=== PATIENT | female | born 1965 | race Caucasian/White ===

== ENCOUNTER 2017-03-04 13:30 | Emergency (ER) | payer OTHER ==
[2017-03-04 13:50] VITALS: RESP 18
[2017-03-04] MEDS ORDERED: IPRATROPIUM-ALBUTEROL 3 ML NEB INHALATION STA (14:04)
[2017-03-04] MEDS ORDERED: predniSONE 20 MG TAB PO STA (14:04)
--- NOTE | 2017-03-04 14:10 | ED ---
General Adult HPI - General Chief complaint: Shortness of Breath Stated complaint: SOB/Cough Time Seen by Provider: 03/04/17 13:52 Source: patient, RN notes reviewed, old records reviewed Mode of arrival: ambulatory Limitations: no limitations - History of Present Illness Initial comments: 52-year-old female with history of COPD presenting for cough and shortness of breath. Patient states she's had worsening symptoms over the past 3 days. She states that she has cough productive of yellow sputum. She has had some chills but denies any fevers. She denies any chest pain. She does state that she's had some pain in her right back, which is worse with coughing. This is been present for the past week, but has been a chronic recurrent issue for her for several years. She does have an inhaler at home she has been using but it does not seem to be helping. She did finish a course of steroids about a month ago for similar symptoms. She's not had any steroids since then. No recent antibiotic use. - Related Data Home Medications Medication Instructions Recorded Confirmed Albuterol Inhaler [Ventolin Hfa 1 - 2 puff INHALATION RT-Q4H PRN 03/04/17 Inhaler] Ibuprofen [Motrin] 800 mg PO Q8HR PRN 03/04/17 03/04/17 Previous Rx's Medication Instructions Recorded Albuterol Inhaler [Ventolin Hfa 2 puff INHALATION Q6HR PRN #1 03/04/17 Inhaler] inhaler Azithromycin [Zithromax] 250 mg PO DAILY #6 tab 03/04/17 Diazepam [Valium] 5 mg PO BID PRN #8 tab 03/04/17 traMADol HCl [Ultram] 50 mg PO Q8HR PRN #15 tab 03/04/17 Allergies Allergy/AdvReac Type Severity Reaction Status Date / Time No Known Allergies Allergy Verified 03/04/17 14:10 Review of Systems ROS Statement: Those systems with pertinent positive or pertinent negative responses have been documented in the HPI. ROS Other: All systems not noted in ROS Statement are negative. Past Medical History Past Medical History: Asthma, COPD Additional Past Medical History / Comment(s): asthma History of Any Multi-Drug Resistant Organisms: None Reported Past Surgical History: Section Additional Past Surgical History / Comment(s): thyroid surgery, lump removed from right breast Past Psychological History: No Psychological Hx Reported Smoking Status: Current every day smoker Past Alcohol Use History: None Reported, Daily Past Drug Use History: None Reported General Exam - General Exam Comments Initial Comments: General: Awake and Alert. No acute distress. Does not appear acutely ill. Eyes: JUANITA, EOM intact. No nystagmus. No scleral icterus. HENT: Atraumatic, normocephalic. Mucous membranes moist. Trachea midline. Neck: The neck is supple, there is no tenderness or JVD. Cardiovascular: Regular rate and rhythm. No murmur, rub, or gallop is appreciated. Distal pulses intact. Respiratory: Lungs are clear to auscultation bilaterally. Positive wheezes. No rales, rhonchi. No respiratory distress. Gastrointestinal: Soft, Nontender. No rebound or guarding. Non-distended. No masses or organomegaly noted. No CVA tenderness. Musculoskeletal: There is point tenderness over the right posterior lower ribs. Otherwise no tenderness. Normal ROM. No gross deformity. No strength deficits. Neurological: A&Ox3. CN II-XII grossly intact, There are no obvious motor or sensory deficits. Coordination appears grossly intact. Speech is normal. Skin: Skin is warm and dry and no rashes or lesions are noted. Psychiatric: Cooperative, appropriate mood & affect, normal judgment. Limitations: no limitations Course Vital Signs 03/04/17 03/04/17 03/04/17 13:44 14:47 14:53 Temperature 98.3 F Pulse Rate 73 78 78 Respiratory 18 18 Rate Blood Pressure 151/62 130/60 O2 Sat by Pulse 96 97 Oximetry 03/04/17 03/04/17 15:04 15:41 Temperature 98.5 F Pulse Rate 83 78 Respiratory 18 Rate Blood Pressure 128/64 O2 Sat by Pulse 97 Oximetry Medical Decision Making - Medical Decision Making 52-year-old female presenting for cough and shortness of breath. Patient with history of COPD and active tobacco user. Patient also has some right posterior rib pain on exam. This is reproducible tenderness. There is low suspicion of PE or severe intrathoracic process at this time. Vitals are stable, no hypoxia. Patient was given a breathing treatment with improvement of her shortness breath. Chest x-ray was performed without acute process. Given her risk with tobacco abuse and COPD plan to cover in his throat. Started on steroids in the emergency room. Rx for this also provided. Patient provided with inhaler prescription as well. Also written for tramadol and Valium for her likely musculoskeletal rib pain. Discussed benefits of smoking cessation. Discussed close follow-up with PCP. Discussed concerning signs symptoms or immediate return to the ED. Patient is agreeable with plan a discharge home. - Radiology Data Radiology results: report reviewed, image reviewed Disposition Clinical Impression: COPD exacerbation, Rib pain on right side, Cough, Tobacco abuse Disposition: HOME SELF-CARE Condition: Stable Instructions: Costochondritis (ED), Bronchospasm (ED), Acute Cough (ED) Prescriptions: Albuterol Inhaler [Ventolin Hfa Inhaler] 2 puff INHALATION Q6HR PRN #1 inhaler PRN Reason: Shortness Of Breath Azithromycin [Zithromax] 250 mg PO DAILY #6 tab Diazepam [Valium] 5 mg PO BID PRN #8 tab PRN Reason: back spasm traMADol HCl [Ultram] 50 mg PO Q8HR PRN #15 tab PRN Reason: Pain Referrals: Jaime Ramos MD [Primary Care Provider] - 1-2 days Time of Disposition: 15:30
--- NOTE | 2017-03-04 14:24 | XR ---
EXAMINATION TYPE: XR chest 2V DATE OF EXAM: 03/04/2017 2:14 PM COMPARISON: None HISTORY: 52-year-old female with cough and congestion TECHNIQUE: PA and lateral views FINDINGS: The cardiomediastinal silhouette, aorta, and pulmonary vasculature are within normal limits. Some str nick atelectasis at the medial right base. Otherwise, lungs and pleural spaces are clear. Old healed surgical neck fracture at the proximal right humerus. IMPRESSION: No acute cardiopulmonary process.
[2017-03-04] MEDS ORDERED: IBUPROFEN 800 MG TAB PO STA (15:06)
[2017-03-04] MEDS ORDERED: traMADol 50 MG TAB PO STA (15:17)
[2017-03-04 15:42] VITALS: BP 128/64; PULSE 78; TEMP 98.5
== END 2017-03-04 15:42 | disposition home or self-care (01) ==
LOC: EC 13:30
DX: J44.1 Chronic obstructive pulmonary disease with (acute) exacerbation (principal); R07.81 Pleurodynia; F17.200 Nicotine dependence, unspecified, uncomplicated
CPT/HCPCS: 94640; 71020; 99285; J7512

== ENCOUNTER → 2017-12-04 | Outpatient (CLI) | payer OTHER ==
--- NOTE | 2017-12-06 08:12 | MM ---
Reason for exam: screening (asymptomatic). Last mammogram was performed 1 year and 11 months ago. History: Patient is postmenopausal. Family history of breast cancer in paternal cousin. Excisional biopsy of the right breast, 1981. Physical Findings: A clinical breast exam by your physician is recommended on an annual basis and results should be correlated with mammographic findings. MG 3D Screening Mammo W/Cad Bilateral CC and MLO view(s) were taken. Prior study comparison: December 26, 2015, bilateral MG 3d screening mammo w/cad. August 12, 2012, bilateral digital screening mammo w/CAD. The breast tissue is heterogeneously dense. This may lower the sensitivity of mammography. Ovoid nodularity asymmetry posterior inferior right MLO view appears more defined and incompletly disperses on 3D images. New grouped calcifications axillary tail left breast. ASSESSMENT: Incomplete: need additional imaging evaluation, BI-RAD 0 RECOMMENDATION: Special view mammogram of both breasts. If lesion persists on supplemental views, image directed ultrasound is recommended. [facility] will attempt to contact patient to return for supplemental views and ultrasound if indicated.
== END | disposition home or self-care (01) ==
LOC: RADMAMWWP 14:02
PROVIDERS: ATTEND Family Medicine
DX: Z12.31 Encounter for screening mammogram for malignant neoplasm of breast (principal)
CPT/HCPCS: 77063; 77067

== ENCOUNTER → 2017-12-12 | Outpatient (CLI) | payer OTHER ==
--- NOTE | 2017-12-13 09:39 | MM ---
Reason for exam: additional evaluation requested from abnormal screening. Last mammogram was performed less than 1 month ago. History: Patient is postmenopausal. Family history of breast cancer in paternal cousin. Excisional biopsy of the right breast, 1989. Physical Findings: Nurse did not find any significant physical abnormalities on exam. MG 3D Work Up W/Cad GARETT Bilateral LM view(s) were taken. Spot compression CC and spot compression MLO view(s) were taken of the right breast. CC with magnification and ML with magnification view(s) were taken of the left breast. Prior study comparison: December 04, 2017, bilateral MG 3d screening mammo w/cad. December 26, 2015, bilateral MG 3d screening mammo w/cad. Finding: There are typically benign coarse heterogeneous, segmental calcifications in the upper outer quadrant, posterior position of the left breast. There is no discrete abnormality in the right breast. These results were verbally communicated with the patient and result sheet given to the patient on 12/12/17. ASSESSMENT: Probably benign, BI-RAD 3 RECOMMENDATION: Follow-up diagnostic mammogram of the left breast in 6 months. (with mag views)
== END | disposition home or self-care (01) ==
LOC: RADMAMWWP 13:41
PROVIDERS: ATTEND Family Medicine
DX: R92.8 Other abnormal and inconclusive findings on diagnostic imaging of breast (principal)
CPT/HCPCS: 77066; G0279

== ENCOUNTER → 2017-12-19 | Outpatient (CLI) | payer OTHER ==
--- NOTE | 2017-12-19 16:59 | CT ---
EXAMINATION TYPE: CT abdomen pelvis w con DATE OF EXAM: 12/19/2017 COMPARISON: 12/14/2015 HISTORY: 52-year-old female with abdominal and Pelvic pain TECHNIQUE: Contiguous axial scanning of the abdomen and pelvis following administration of 100 ml Omn ipaque 300 IV contrast. Delayed images through the kidneys and coronal/sagittal reconstructions perf ormed. CT DLP: 427.9 mGycm Automated exposure control for dose reduction was used. FINDINGS: Heart is normal size with trace anterior pericardial fluid/thickening. There is a 9 mm subpleural nodule posterior left lung base new from prior, suspected nodular subpleur al atelectasis. No pleural effusion. A couple subcentimeter hypodensities in the superior liver, axial image 12 and 13 were present in 201 6 suggestive of cysts. Some focal fat is seen along the anterior falciform ligament. Portal vein is p atent. No biliary ductal dilatation. Gallbladder, adrenal glands, left kidney, and pancreas within normal limits. Subcentimeter hypodensit y lower pole right kidney too small fractured CT characterization was present previously suggesting a cyst. There is a heterogeneously enhancing round mass measuring 3.9 cm in the upper pole of the spleen prev iously measured 1.6 cm. No dilated small bowel, free fluid, or free air. Oral contrast has progressed to the rectum. There is sigmoid diverticulosis without pericolonic infla mmatory change. Scattered nonenlarged mesenteric lymph nodes in the upper abdomen. No mesenteric or retroperitoneal l ymphadenopathy. Bladder partially urine distended. Redemonstrated mass along the right lateral aspect of the uterus measuring 3.7 cm, unchanged from 11/19 suggestive of a focal fibroid. Small bilateral ovaries. Pelvic phlebolith. No abnormal fluid c ollection in the pelvis or pelvic lymphadenopathy seen. Bones: Facet arthropathy mid to lower lumbar spine. There is grade 1 anterolisthesis at L3-L4. IMPRESSION: 1. ENLARGING MASS IN THE UPPER POLE OF THE SPLEEN CURRENTLY MEASURING 3.9 CM VERSUS 1.6 CM ON 12/14/19 16. RELATIVELY INDOLENT GROWTH CHARACTERISTICS MAKES AN AGGRESSIVE LESION INCLUDING METASTATIC DISEAS E LESS LIKELY. HEMANGIOMA, HAMARTOMA, AND HAMARTOMA VARIANT ARE POSSIBLE BENIGN ETIOLOGIES WHICH MAY BE BETTER ASSESSED WITH DYNAMIC CONTRAST ENHANCED MRI. FOLLOW-UP IS RECOMMENDED A NEOPLASTIC ETIOL OGY IS NOT EXCLUDED AT THIS TIME. 2. A 9 MM SUBPLEURAL NODULE POSTERIOR LEFT BASE IS NEW BUT SUSPECTED TO REPRESENT AN AREA OF NODULAR SUBPLEURAL ATELECTASIS. THREE-MONTH FOLLOW-UP RECOMMENDED. 3. STABLE 3.7 CM MASS IN THE RIGHT LATERAL UTERUS MOST SUGGESTIVE OF A FOCAL FIBROID. 4. SIGMOID DIVERTICULOSIS.
== END | disposition home or self-care (01) ==
LOC: RADCTMAIN 14:14
PROVIDERS: ATTEND Family Medicine
DX: K57.30 Diverticulosis of large intestine without perforation or abscess without bleeding (principal); N85.8 Other specified noninflammatory disorders of uterus
CPT/HCPCS: 74177; Q9967

== ENCOUNTER → 2018-04-25 | Outpatient (CLI) | payer OTHER ==
--- NOTE | 2018-04-25 16:08 | CT ---
EXAMINATION TYPE: CT chest w con DATE OF EXAM: 04/25/2018 COMPARISON: CT abdomen 12/19/2017 HISTORY: Abnormal mammogram and lung nodule CT DLP: 591 mGycm, Automated exposure control for dose reduction was used. CONTRAST: Performed injected with 100 ml mL of Isovue 300. TECHNIQUE: Axial images were obtained at 5 mm thick sections. Reconstructed images are reviewed on [employer] computer in the coronal plane. FINDINGS: Portion of the thyroid visualized is normal. No suspicious lung nodules or focal infiltrates are present. Discrete nodules not identified. Previou s nodule in the posterior left lung base has resolved compatible with atelectasis. No enlarged mediastinal or hilar adenopathy is evident. The ascending aorta diameter at the level o f the main pulmonary artery is 2.6 cm. The main pulmonary artery diameter at the bifurcation is 2.[address] sections are obtained through the upper abdomen. There is a 0.7 cm cyst on the posterior r ight lobe liver. There is a hypodense mass within the spleen measuring 4.3 x 3.9 cm. This is stable f rom comparison. IMPRESSIONS: 1. No discrete lung nodule present. Previous findings likely related atelectasis. 2. Stable mass within the spleen. Small cyst remains within the liver.
--- NOTE | 2018-04-28 10:36 | MM ---
Reason for exam: follow-up at short interval from prior study. Last mammogram was performed 4 months ago. History: Patient is postmenopausal. Family history of breast cancer in paternal cousin. Excisional biopsy of the right breast, 1989. Physical Findings: Nurse did not find any significant physical abnormalities on exam. MG 3D Diag Mammo W/Cad LT CC, MLO, XCCL, and ML view(s) were taken of the left breast. Prior study comparison: December 12, 2017, bilateral MG 3d work up w/cad GARETT. December 04, 2017, bilateral MG 3d screening mammo w/cad. The breast tissue is heterogeneously dense. This may lower the sensitivity of mammography. The previously seen upper outer quadrant posterior depth left breast calcifications have slightly increased in comparison to 12/12/17, specifically the linear more lateral calcification on CC view. These were not imaged on CC in 2016 and not present on MLO in 2016. These are suspicious warranting biopsy. These results were verbally communicated with the patient and result sheet given to the patient on 04/25/18. ASSESSMENT: Suspicious, BI-RAD 4 RECOMMENDATION: Stereotactic core biopsy of the left breast. Called Dr. Ramos with mammographic findings and has scheduled an appointment for the patient for 04/30/18 at 11:[address] Antonio. PRELIMINARY REPORT CALLED AND FAXED TO DR. ANTONIO ON 04/28/18.
== END | disposition home or self-care (01) ==
LOC: RADCTMAIN 13:14
PROVIDERS: ATTEND Family Medicine
DX: R92.8 Other abnormal and inconclusive findings on diagnostic imaging of breast (principal); D73.89 Other diseases of spleen; K76.89 Other specified diseases of liver
CPT/HCPCS: 77065; 71260; G0279; Q9967; 77061

== ENCOUNTER → 2018-05-07 | Outpatient (CLI) | payer OTHER ==
--- NOTE | 2018-05-08 08:36 | MR ---
EXAMINATION TYPE: MR abdomen wo/w con DATE OF EXAM: 05/07/2018 COMPARISON: CT abdomen and pelvis April 25, [address] study December 14, 2015. HISTORY: Splenic mass (R 16.1) per order. CONTRAST: Standard multiplanar, multisequence MRI departmental protocol utilizing 7.5 mL intravenous Gadavist g adolinium contrast. Imaging is performed of the abdomen. FINDINGS: Spleen: Spleen overall remains normal in size. There is redemonstration of central fairly well-define d mass slightly bulging the anterior medial and posterior lateral margins of the spleen that is heter ogeneous fairly isointense to slightly hypointense on T1-weighted images and heterogeneous isointense on T2-weighted images with areas of low serpiginous and linear T1 and T2 signal radiating from a sneha tral point. Dynamic postcontrast images show heterogeneous increasing enhancement or increased intens ity versus adjacent normal spleen. With persistent foci and linear areas of low signal or non enhance ment. Corresponding CT does not show calcification. Lesion measures roughly 4.6 cm craniocaudal dimen erinn coronal image 69, by 4.4 cm AP diameter by 4.2 cm transverse diameter axial image 395 series 701 . Anterior and inferior to this there is 8mm simple appearing thin-walled cyst seen best image 24 serie s 501. Remainder spleen is unremarkable. No surrounding ascites is seen. Other: There is simple appearing 8 mm cyst posterior right hepatic dome image 32 series 501. There is simple appearing 5 mm cyst anteriorly left hepatic lobe axial image 30. No worrisome solid or cystic masses seen. No suspicious biliary dilatation is noted. Gallbladder and both adrenal glands are felt within normal limits. There is no concerning renal mass or hydronephrosis. There is subcentimeter si mple appearing cyst anteriorly lower pole level right kidney without enhancement seen best coronal im age 22 series 201. Lung bases are clear. There is no suspicious bowel dilatation. There is no suspici ous abdominal ascites. No greater than 1 cm abdominal adenopathy is seen. Osseous structures are inta ct. IMPRESSION: Redemonstration of roughly 4.5 cm splenic mass as stated on CT report do favor a benign etiology but with progressive enlargement and heterogeneous enhancement there is concern for bleeding or hemorrhag e. Differential includes atypical hemangioma and hamartoma variant, I would advise surgical consultat ion to assess for possible splenectomy due to risks of bleeding and/or hemorrhage. At minimum continu e semiannual and/or annual imaging monitoring is advised.
== END | disposition home or self-care (01) ==
LOC: RADMRIMAIN 17:56
PROVIDERS: ATTEND Family Medicine
DX: R16.1 Splenomegaly, not elsewhere classified (principal)
CPT/HCPCS: 74183; A9581

== ENCOUNTER → 2018-07-31 | Outpatient (CLI) | payer OTHER ==
--- NOTE | 2018-07-31 12:46 | XR ---
EXAMINATION TYPE: XR chest 2V DATE OF EXAM: 07/31/2018 COMPARISON: Prior chest x-ray 03/04/2017 HISTORY: Cough TECHNIQUE: Frontal and lateral views of the chest are obtained. FINDINGS: There is been interval placement of a Port-A-Cath in the right pectoral region, tip of the catheter is overlying superior vena cava. There is no evident pneumothorax or pleural effusion. Biap ical pleural thickening is stable. Cardiac mediastinal silhouette, pulmonary vascularity and bailey are unchanged. No evident airspace disease, pneumothorax, or pleural effusion. Prominent lung volumes mercedes ggest underlying COPD. There is bronchial wall thickening. Proximal right humerus shows a stable appe arance, question prior trauma. IMPRESSION: Correlate for bronchitis, reactive airways disease. Additional findings above.
== END | disposition home or self-care (01) ==
LOC: RADXRMAIN 11:01
PROVIDERS: ATTEND Nurse Practitioner Adult Health
DX: C50.412 Malignant neoplasm of upper-outer quadrant of left female breast (principal); Z17.1 Estrogen receptor negative status [ER-]; J43.9 Emphysema, unspecified
CPT/HCPCS: 71046

== ENCOUNTER → 2018-08-07 | Outpatient (CLI) | payer OTHER ==
--- NOTE | 2018-08-07 10:55 | CT ---
EXAMINATION TYPE: CT chest w con DATE OF EXAM: 08/07/2018 COMPARISON: April 25, 2018 HISTORY: breast CA CT DLP: 147.1 mGycm Automated exposure control for dose reduction was used. CONTRAST: CT scan of the chest is performed with IV Contrast, patient injected with 100 mL of Isovue 300. FINDINGS: LUNGS: The lungs are grossly clear, there is no concerning parenchymal mass or nodule identified. T here is no pleural effusion or pneumothorax seen. The tracheobronchial tree is patent. MEDIASTINUM: There are no greater than 1 cm hilar or mediastinal lymph nodes. No pericardial effusi on is seen. Thoracic aorta is of normal caliber. The heart is not enlarged. UPPER ABDOMEN: Stable splenic lesion measuring 4.5 cm AP dimension. Stable fatty hepatic infiltration . Stable hepatic cysts measuring up to 5 mm one within the posterior segment right hepatic lobe and o ne within the periphery of the lateral segment left hepatic lobe. OTHER: No additional significant abnormality is seen. IMPRESSION: 1. No evidence for pulmonary nodule or mass. 2. Stable splenic lesion. 3. Stable hepatic cysts.
== END | disposition home or self-care (01) ==
LOC: RADCTMAIN 09:55
PROVIDERS: ATTEND Internal Medicine Hematology & Oncology
DX: C50.912 Malignant neoplasm of unspecified site of left female breast (principal)
CPT/HCPCS: 71260; Q9967

== ENCOUNTER → 2018-08-08 | Outpatient (CLI) | payer OTHER ==
[2018-08-08 12:49] VITALS: BP 127/74; PULSE 82; RESP 16; TEMP 97.8; BMI 22.6
--- NOTE | 2018-08-08 13:12 | P.GSHP ---
History of Present Illness H&P Date: 08/08/18 The patient is a 53 year old white female diagnosed with a 7 mm invasive ductal cancer, margins negative with a componet of DCIS less than 1 mm from the posterior margin. She had a node positive cancer within the breast. Initial attempt at stereotactic biopsy was unsuccessful secondary to the posterior location of the lesion. The cancer was diagnosed after needle localization and excisional biopsy. Secondary to the invasive component and the fact that there was a positive intraparenchymal lymph node a sentinel node biopsy was then performed. [place] node biopsies were negative for cancer. The patient has been seen by medical oncology. The tumor is Grade 3, ER-, SD-, HER2 +1 considered negative however this was sent for FISH and came back positive The patient was recommended via medical oncology to undergo chemotherapy as well as immunotherapy. The patient will then require radiation therapy. The patient since her lumpectomy/sentinel node biopsy has been experiencing erythema and firmness in the left breast. She had further evaluation done via an ultrasound , and a PET scan and a brain MRI. The patient reports the PET scan and the MRI did not show any metastatic disease however there was some concern on the ultrasound. The patient continues to have firmness under her left nipple areolar complex and some mild erythema. The patient has taken a course of Keflex, and a second atnibiotic of which she is unsure this does appear to have improved the erythema. She is presently on an antibiotic for bronchitis. Patient denies any definite fever. Family history: 1. father: cancer intra-abdominal 2. paternal cousin: lung 3. paternal cousin: breast in her 30's 4. paternal uncle: unsure of source Hormonal History: menarche: 10 : first at 16, 2 , 3 children, breast fed: yes menopause: 46 BCP: none hormones: none Past Surgical History: 1. right breast biopsy 2. neck lesion removed 3. left breast lumpectomy and SNB 4. mediport placement 5. three c-sections Past Medical History: none Social History: smoke: 1PPD/40 years alcohol: 6 beers QOD drugs: Marijuana one joint a day, no other drugs - Constitutional Constitutional: Denies chills, Denies fever - EENT Eyes: denies blurred vision, denies pain Ears: bilateral: tinnitus, deny: decreased hearing Ears, nose, mouth and throat: Denies headache, Denies sore throat - Breasts Breasts: bilateral: as per HPI - Cardiovascular Comment: COPD/bronchitis, asthma Cardiovascular: Reports shortness of breath, Denies chest pain - Respiratory Comment: COPD/bronchitis/asthma - Gastrointestinal Comment: Blood in stool, last colonoscopy approximately a year ago polyps identified - Genitourinary (Female) Genitourinary: Denies dysuria, Denies hematuria - Menstruation Menstruation: Reports postmenopausal - Musculoskeletal Comment: arthritis - Integumentary Comment: patient was supposed to start chemotherapy yesterday but did not secondary to bronchitis Integumentary: Reports rash - Neurological Comment: shaking related to cortisone - Psychiatric Psychiatric: Reports anxiety, Denies depression - Endocrine Endocrine: Reports weight change, Denies fatigue - Hematologic/Lymphatic Comment: a lesion noted in her spleen being followed - Allergic/Immunologic Comment: none Past Medical History Past Medical History: Asthma, COPD Additional Past Medical History / Comment(s): asthma History of Any Multi-Drug Resistant Organisms: None Reported Past Surgical History: Section Additional Past Surgical History / Comment(s): thyroid surgery, lump removed from right breast Past Psychological History: No Psychological Hx Reported Smoking Status: Current every day smoker Past Alcohol Use History: None Reported, Daily Past Drug Use History: None Reported Medications and Allergies Home Medications Medication Instructions Recorded Confirmed Type Albuterol Inhaler [Ventolin Hfa 1 - 2 puff INHALATION RT-Q4H PRN 03/04/17 History Inhaler] Albuterol Inhaler [Ventolin Hfa 2 puff INHALATION Q6HR PRN #1 03/04/17 Rx Inhaler] inhaler Azithromycin [Zithromax] 250 mg PO DAILY #6 tab 03/04/17 Rx Diazepam [Valium] 5 mg PO BID PRN #8 tab 03/04/17 Rx Ibuprofen [Motrin] 800 mg PO Q8HR PRN 03/04/17 03/04/17 History traMADol HCl [Ultram] 50 mg PO Q8HR PRN #15 tab 03/04/17 Rx Allergies Allergy/AdvReac Type Severity Reaction Status Date / Time No Known Allergies Allergy Verified 03/04/17 14:10 Surgical - Exam - General well developed, well nourished, no distress - Eyes normal ocular movement - ENT no hearing loss, no congestion - Neck incision clean and dry no masses, trachea midline - Respiratory normal respiratory effort, clear to auscultation - Cardiovascular Rhythm: regular Heart Sounds: normal: S1, S2 - Abdomen Abdomen: soft, non tender, no guarding, no rigid, no rebound - Integumentary Erythema left breast at periareolar area - Neurologic no disoriented, no combative - Musculoskeletal normal gait, normal posture - Psychiatric oriented to time, oriented to person, oriented to place, speech is normal, memory intact Rest examination: Right breast: Multiple positional exam no dominant masses or nodules of concern Right axilla: No adenopathy of concern Left breast: Erythema is noted in the periareolar area, multiple positional exam no dominant masses of concern however the patient does have a well-healed scar in the lateral aspect Left axilla: Well-healed scar in the axilla no discrete adenopathy of concern Results Results of pathology and tumor Board conference recommendations reviewed Assessment and Plan Assessment: Impression: 1. Recent diagnosis of left breast cancer ER SD negative HER-2 positive grade 3 T1bN1a(intramammary lymph node)M0 2. COPD/bronchitis/asthma 3. Nicotine dependence 4. Arthritis 5.Alcohol/marijuana use 6. Splenic lesion being followed conservatively Plan: 1. Patient has been seen by medical oncology and recommended to undergo chemotherapy as well as hormonal immunotherapy 2. Patient will require radiation therapy 3. At the present time we will review the ultrasound to ascertain whether there is a abscess in the breast and would continue antibiotic therapy for resolving cellulitis cc: DR. Dunham, Dr. Landis
--- NOTE | 2018-08-11 07:52 | USB ---
Reason for exam: additional evaluation requested from prior study. History: Patient is postmenopausal. Family history of breast cancer in paternal cousin. Excisional biopsy of the right breast, 1989. Physical Findings: Breast exam performed by Dr. Spencer. US Breast LT Left complete breast ultrasound includes all four quadrants, the retroareolar region and axilla. Finding demonstrates a 3.2cm scar at 2 o'clock, a 0.8 x 0.4 x 0.7cm hypoechoic lesion at 7 o'clock for which a biopsy is recommended, a 1.9 x 0.7 x 1.1cm cystic cluster at 10 o'clock and a 1.9cm scar at axilla. These results were verbally communicated with the patient and result sheet given to the patient on 08/08/18. ASSESSMENT: Suspicious, BI-RAD 4 RECOMMENDATION: Ultrasound core biopsy of the left breast. Called with mammographic findings and has scheduled an appointment for the patient for 08/22/18 at 2:[address] Spencer. Biopsy scheduled for 08/13/18 at 2:20. PRELIMINARY REPORT CALLED AND FAXED TO DR. SPENCER ON 08/11/18.
== END | disposition home or self-care (01) ==
LOC: WWCWWP 11:55
PROVIDERS: ATTEND Surgery
DX: R92.8 Other abnormal and inconclusive findings on diagnostic imaging of breast (principal); Z85.3 Personal history of malignant neoplasm of breast

== ENCOUNTER → 2018-08-13 | Day surgery (SDC) | payer OTHER ==
[2018-08-13 13:43] VITALS: RESP 16; TEMP 97.9; BMI 22.6
[2018-08-13 14:51] VITALS: BP 118/74; PULSE 84
--- NOTE | 2018-08-13 15:25 | USB ---
EXAMINATION TYPE: US biopsy breast VAD LT, MG diagnostic mammo LT wo CAD DATE OF EXAM: 08/13/2018 CLINICAL HISTORY: R92.8 ABN MAMMO,Z85.3 HX BREAST CA. TECHNIQUE: Ultrasound guided core biopsy of left breast. COMPARISON: NONE FINDINGS: The procedure of ultrasound guided core biopsy was explained to the patient. Benefits, alt ernatives, and risks were discussed. An informed consent was then obtained. The patient was placed in supine positioning for imaging and for the procedure. The overlying skin w as prepped and draped in usual sterile fashion. Lidocaine buffered with bicarbonate was used as anes thetic into the skin and subcutaneous tissue up to area of concern in the left 7:00 breast. A judy w as made with surgical scalpel. Under ultrasound guidance, a 12-gauge vacuum assisted biopsy gun device was used to obtain [address]. Following this, a biopsy clip was left in lesion. Postprocedural mammogram demonstrates appro priate deployment. The patient tolerated the procedure well without any immediate complication. The patient was kept in the radiology department for short stay after the procedure and then discharged home in stable condi tion. IMPRESSION: Successful, uncomplicated ultrasound guided core biopsy of area of concern in the left 7: 00 breast, full pathology results to follow.
== END ==
LOC: RADUSWWP 13:14
PROVIDERS: ATTEND Surgery
DX: N64.1 Fat necrosis of breast (principal); L90.5 Scar conditions and fibrosis of skin; R92.8 Other abnormal and inconclusive findings on diagnostic imaging of breast; Z85.3 Personal history of malignant neoplasm of breast
CPT/HCPCS: 77065; 88305

== ENCOUNTER → 2018-08-22 | Outpatient (CLI) | payer OTHER ==
--- NOTE | 2018-08-22 16:19 | P.PN ---
Subjective Progress Note Date: 08/22/18 The patient is seen status post ultrasound-guided core biopsy performed by the radiologist. This is not a postoperative visit for me. The patient is a 53-year-old white female who was diagnosed with a 7 mm invasive ductal carcinoma, margins negative with a component of DCIS less than 1 mm from the posterior margin. She had a node which was intramammary which was positive and the biopsy. Initial attempt at stereo biopsy was unsuccessful secondary to the posterior location of the lesion. The cancer was diagnosed after needle localization and excisional biopsy. Secondary to the invasive component and the fact that it was a positive intra-mammary node sentinel node biopsy was then performed. The sentinel node biopsy was negative for cancer. The patient had an injection of methylene blue prior to the sentinel node biopsy and subsequently developed pain posterior to the nipple with fullness at this site. An ultrasound was performed which revealed a lesion of some suspicion and it was recommended that she undergo an ultrasound core biopsy of this area of concern. The ultrasound core biopsy was performed and this was noted to be consistent with fat necrosis and inflammation negative for malignancy. The patient's continues to complain of tenderness behind the left nipple area over area and some mild erythema although this appears to be improving. The patient did have a PET scan and MRI done which did not show any metastatic disease. The patient had been treated for the erythema in the left breast with a course of Keflex. The patient is not complaining of any fever or chills. The patient relates to me that she has not had a mammogram of the right breast for over a year and a half. Objective - Vital Signs Vital signs: Weight 133, temperature 97.6 Pulse 76 Respirations 18 O2 sat 98 Blood pressure 139/76 - Constitutional General appearance: Present: average body habitus, mild distress - EENT Eyes: Present: EOMI ENT: Present: hearing grossly normal - Neck Neck: Present: normal ROM - Respiratory Respiratory: bilateral: CTA - Cardiovascular Rhythm: regular Heart sounds: normal: S1, S2 - Gastrointestinal General gastrointestinal: Present: soft - Psychiatric Psychiatric: Present: A&O x's 3, appropriate affect, intact judgment & insight - Additional findings Additional findings: Left breast examination: Left breast has some ecchymosis related to recent ultrasound-guided core biopsy there is fullness under the nipple areolar complex which is most likely related to a hematoma and/or inflammation related to the methylene blue injection and ultrasound-guided core biopsy Assessment and Plan Assessment: Impression: 1. Recently diagnosed left breast cancer, ER/ID negative HER-2 positive grade 3 T1b N1 a M0 2. COPD/bronchitis/asthma 3. Nicotine dependence 4. Arthritis 5. Alcohol/marijuana use 6. Splenic lesion being followed conservatively 7. Recent ultrasound core biopsy of the left breast negative for cancer 8. Left breast mild erythema probably related to chemical reaction from the methylene blue injection and postoperative inflammation/recent ultrasound core biopsy with small hematoma Plan: 1. Patient with no evidence of infection at this time would recommend beginning chemotherapy is right breast mammogram does not show any lesions of concern 2. Right breast mammogram 3. Patient will require radiation therapy 4. If patient begins chemotherapy will follow up here in 3 months time 5. Medical management of medical conditions CC: Dr. Ramos
[2018-08-25 07:52] VITALS: BP 139/76; PULSE 88; RESP 18; TEMP 97.6; BMI 22.8
--- NOTE | 2018-08-25 08:33 | MM ---
Reason for exam: additional evaluation requested from abnormal screening. Last mammogram was performed less than 1 month ago. History: Patient is postmenopausal. Family history of breast cancer in paternal cousin. Benign US biopsy breast VAD LT of the left breast, August 13, 2018. Excisional biopsy of the right breast, 1989. Physical Findings: Breast exam performed by Dr. Spencer. MG 3D Diag Mammo W/Cad RT CC and MLO view(s) were taken of the right breast. Prior study comparison: August 13, 2018, left breast MG diagnostic mammo LT wo CAD. April 25, 2018, left breast MG 3d diag mammo w/cad LT. The breast tissue is heterogeneously dense. This may lower the sensitivity of mammography. Right mediport noted. Stable medial right breast asymmetry. These results were verbally communicated with the patient and result sheet given to the patient on 08/22/18. ASSESSMENT: Benign, BI-RAD 2 RECOMMENDATION: Follow-up diagnostic mammogram of both breasts in 1 year.
== END | disposition home or self-care (01) ==
LOC: WWCWWP 14:34
PROVIDERS: ATTEND Surgery
DX: Z08 Encounter for follow-up examination after completed treatment for malignant neoplasm (principal); Z85.3 Personal history of malignant neoplasm of breast
CPT/HCPCS: 77065; G0279; 77061

== ENCOUNTER 2018-10-07 12:29 | Day surgery (SDC) | payer OTHER ==
[2018-10-02 16:12] VITALS: BMI 22.1
[~2018-10-07 12:29] MED LIST: LIDOCAINE 1% 20 ML VIAL (10MG/ML) FOR IV START INTRADERMA PRN
[2018-10-07 13:08] VITALS: TEMP 97.5
[2018-10-07] MEDS: LACTATED RINGERS 1,000 ML IV SCH ×2 (13:13→14:46)
[2018-10-07 13:36] LABS: Glucose,Whole Blood 89 mg/dL (75-99)
[2018-10-07] MEDS ORDERED: MIDAZOLAM 2 MG/2 ML VIAL IVP ONE (13:39)
[2018-10-07 14:15] VITALS: RESP 18
[2018-10-07] MEDS ORDERED: fentaNYL (PF) 50 MCG/ML 2 ML AMP ONE (14:48)
[2018-10-07] MEDS ORDERED: PROPOFOL 10 MG/ML 20 ML VIAL IV ONE (14:48)
[2018-10-07] MEDS ORDERED: LIDOCAINE 1% INJ 10MG/ML (20 ML MDV) ONE (14:48)
--- NOTE | 2018-10-07 15:35 | P.PCN ---
Date of Procedure: 10/07/18 Procedure(s) Performed: Procedures: 1. Esophagogastroduodenoscopy and biopsy. 2.Colonoscopy and biopsy. Preoperative diagnosis: Epigastric pain and rectal bleeding and diarrhea. Postoperative diagnosis: 1. Small sliding hiatal hernia with no obvious esophagitis or complicated reflux disease. 2. Mild gastritis and duodenitis. 3. Biopsy obtained from the antrum. 4. Diverticulosis with possible prior episodes of diverticulitis. 5. Low-grade internal hemorrhoids without bleeding at the time of this exam. 6. Biopsies obtained from the terminal ileum and right colon. Preparation : HalfLytely prep. Sedation: Was provided by anesthesia. Brief clinical history: The patient is a 53-year-old female who was evaluated in our office earlier this month for diarrhea, rectal bleeding, abdominal pain and history of colon polyps. Her last colonoscopy was in February 2016. The patient was diagnosed with breast cancer in May of this year and underwent lumpectomy and was started on chemotherapy last month. Dr. Landis recommended GI workup to include colonoscopy. Procedure: With the patient on her left lateral decubitus position and after informed consent and adequate sedation, I passed the Olympus-GIF 160 video upper endoscope through the cricopharyngeus down the esophagus. GE junction was around 36 cm from the incisors and there was a small sliding hiatal hernia but no obvious esophagitis or complicated reflux disease. The endoscope was then passed into the stomach which was insufflated with air and inspected in detail including the retroflex view in the cardia. There was some mottling and erythema in the antrum but no ulcers or erosions. Pyloric channel did not show any ulcers. Duodenal bulb, post bulbar area and descending duodenum showed minimal erythema and friability but no ulcers, erosions or bleeding. I obtained biopsies from the antrum then the endoscope was withdrawn and I then proceeded with the colonoscopy. Perianal area did not show any fissures or fistulas. There were no masses felt on digital rectal examination. The Olympus CFQ 160L video colonoscope was then inserted in the rectum in the usual fashion and advanced to the cecum. I intubated the ileocecal valve and examined the terminal ileum. Terminal ileum appeared normal as did the colon with the only finding of multiple diverticular orifices seen mostly in the sigmoid with few around the hepatic flexure and on the right side. No polyps or tumors were seen. There was some isolated areas of submucosal hemorrhage in the sigmoid in the vicinity of diverticular orifices raising the possibility of a prior bout of diverticulitis. There was no spontaneous bleeding. I retroflexed the endoscope in the rectum before the endoscope was withdrawn. Low-grade internal hemorrhoids were noted without evidence of bleeding. I also obtained biopsies from the terminal ileum and right colon before the endoscope was withdrawn. The patient tolerated the procedure well. Plan: The patient was reassured. She will follow-up in the office as scheduled and will make further plans based on her course and biopsy results.
[2018-10-07 15:46] VITALS: BP 133/71; PULSE 65
== END 2018-10-07 16:18 | disposition home or self-care (01) ==
LOC: ORWHC2ENDO 12:29
DX: K29.50 Unspecified chronic gastritis without bleeding (principal); K62.5 Hemorrhage of anus and rectum; K29.80 Duodenitis without bleeding; K57.30 Diverticulosis of large intestine without perforation or abscess without bleeding; K64.8 Other hemorrhoids; Z85.3 Personal history of malignant neoplasm of breast; K44.9 Diaphragmatic hernia without obstruction or gangrene; Z86.010 Personal history of colon polyps; J44.9 Chronic obstructive pulmonary disease, unspecified; Z79.51 Long term (current) use of inhaled steroids; F17.210 Nicotine dependence, cigarettes, uncomplicated; K21.9 Gastro-esophageal reflux disease without esophagitis; Z79.899 Other long term (current) drug therapy; M19.90 Unspecified osteoarthritis, unspecified site; Z91.048 Other nonmedicinal substance allergy status
CPT/HCPCS: 88305; 43239; 45380; J2250; J2001; J3010; J2704

== ENCOUNTER → 2018-12-26 | Outpatient (CLI) | payer OTHER ==
--- NOTE | 2018-12-26 14:56 | MR ---
EXAMINATION TYPE: MR brain wo/w con DATE OF EXAM: 12/26/2018 COMPARISON: NONE HISTORY: Vision changes / Right-sided numbness. History of breast cancer. TECHNIQUE: Multiplanar, multisequence images of the brain and brainstem is performed without and with IV contras t, utilizing 6 mL intravenous Gadavist . FINDINGS: Diffusion weighted images demonstrate no evidence of a recent infarct or other diffusion ab normality. There is no extra-axial fluid collection. There is a solitary focus of nonenhancing T2/FL AIR hyperintensity within the left parietal lobe in the deep white matter on FLAIR and axial fat sat image 20 measuring 3 x 3 mm. The ventricular system and cisternal spaces are normal in size and appea en. The brain volume is age appropriate. Midline structures demonstrate normal morphology. 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 The cerebral aqueduct is p atent. The craniocervical junction appears within normal limits. Post contrast images demonstrate no abnormal enhancement. The dural venous sinuses appear patent. The lungs are intact. Mild mucosal thi ckening is seen within the maxillary and ethmoid sinuses. Remaining visualized paranasal sinuses and mastoid air cells are well aerated. Major intracranial flow voids are maintained. IMPRESSION: 1. 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 This could create Parinaud's syndrome in this patient with visual changes. Correlate with ophthalmologic examination. 2. No evidence of abnormal intracranial enhancement to suggest intracranial metastasis in this patien t with a history of breast carcinoma. 3. Solitary punctate focus of nonenhancing nonspecific white matter change within the left parietal l obe, likely on the basis of chronic microangiopathy.
== END ==
LOC: RADMRIMAIN 12:21
PROVIDERS: ATTEND Internal Medicine Hematology & Oncology
DX: E34.8 Other specified endocrine disorders (principal); R90.89 Other abnormal findings on diagnostic imaging of central nervous system
CPT/HCPCS: 70553; A9585

== ENCOUNTER → 2019-01-07 | Outpatient (CLI) | payer OTHER ==
--- NOTE | 2019-01-08 10:09 | ECHOF ---
Referral Reason:Z01.818 chemotherapy MEASUREMENTS -------- HEIGHT: 162.6 cm WEIGHT: 58.1 kg BP: RVIDd: 2.6 cm (< 3.3) IVSd: 1.0 cm (0.6 - 1.1) LVIDd: 4.2 cm (3.9 - 5.3) LVPWd: 1.1 cm (0.6 - 1.1) IVSs: 1.2 cm LVIDs: 2.9 cm LVPWs: 1.3 cm LAESV Index (A-L): 18.23 ml/m Ao Diam: 2.4 cm (2.0 - 3.7) AV Cusp: 1.6 cm (1.5 - 2.6) LA Diam: 3.2 cm (2.7 - 3.8) MV EXCURSION: 20.043 mm (> 18.000) MV EF SLOPE: 147 mm/s (70 - 150) EPSS: 0.5 cm MV E Jesús: 0.92 m/s MV DecT: 260 ms MV A Jesús: 1.03 m/s MV E/A Ratio: 0.90 RAP: 5.00 mmHg RVSP: 12.50 mmHg FINDINGS -------- Sinus rhythm. This was a technically good study. The left ventricular size is normal. Left ventricular wall thickness is normal. Overall left vent ricular systolic function is normal with, an EF between 55 - 60 %. The right ventricle is normal in size and function. Normal LA size by volume 22+/-6 ml/m2. The right atrium is normal in size. Aortic valve is trileaflet and is mildly thickened. There is no evidence of aortic regurgitation. There is no evidence of aortic stenosis. The mitral valve leaflets are mildly thickened. There is trace mitral regurgitation. Trace tricuspid regurgitation present. Right ventricular systolic pressure is normal at < 35 mmHg. There is no evidence of pulmonary hypertension. The pulmonic valve was not well visualized. The aortic root size is normal. Normal inferior vena cava with normal inspiratory collapse consistent with estimated right atrial pre ssure of 5 mmHg. There is no pericardial effusion. CONCLUSIONS -------- 1. Sinus rhythm. 2. This was a technically good study. 3. The left ventricular size is normal. 4. Left ventricular wall thickness is normal. 5. Overall left ventricular systolic function is normal with, an EF between 55 - 60 %. 6. Normal LA size by volume 22+/-6 ml/m2. 7. Aortic valve is trileaflet and is mildly thickened. 8. The mitral valve leaflets are mildly thickened. 9. There is trace mitral regurgitation. 10. Trace tricuspid regurgitation present. 11. Right ventricular systolic pressure is normal at < 35 mmHg. 12. There is no evidence of pulmonary hypertension. 13. The pulmonic valve was not well visualized. 14. The aortic root size is normal. 15. There is no pericardial effusion. [employer] DEVELOPER: Logan Arrieta RDCS
== END | disposition home or self-care (01) ==
LOC: RADECHMAIN 14:41
PROVIDERS: ATTEND Internal Medicine Hematology & Oncology
DX: Z01.818 Encounter for other preprocedural examination (principal)
CPT/HCPCS: 93306

== ENCOUNTER → 2019-03-10 | Outpatient (CLI) | payer OTHER ==
--- NOTE | 2019-03-10 11:23 | USB ---
Reason for exam: clinical finding. History: Patient is postmenopausal and has history of breast cancer at age 54. Family history of breast cancer in paternal cousin. Benign US biopsy breast VAD LT of the left breast, August 13, 2018. Excisional biopsy of the right breast, 1989. Chemotherapy. Radiation therapy. Physical Findings: Nurse Summary: pain, tenderness throughout (nurse kp). US Breast RT Right complete breast ultrasound includes all four quadrants, the retroareolar region and axilla. Finding demonstrates a 4mm lymph node at axilla. These results were verbally communicated with the patient and result sheet given to the patient on 03/10/19. ASSESSMENT: Benign, BI-RAD 2 RECOMMENDATION: Routine screening mammogram of both breasts in 6 months. Back on schedule. Manage patient on a clinical basis.
== END | disposition home or self-care (01) ==
LOC: RADUSWWP 10:20
PROVIDERS: ATTEND Internal Medicine Hematology & Oncology
DX: N64.4 Mastodynia (principal)

== ENCOUNTER → 2019-04-09 | Outpatient (CLI) | payer OTHER ==
--- NOTE | 2019-04-10 09:15 | ECHOF ---
Referral Reason:C50.412 Breast CA, Z01.818 Pre Chemo MEASUREMENTS -------- HEIGHT: 162.6 cm WEIGHT: 57.6 kg BP: IVSd: 1.1 cm (0.6 - 1.1) LVIDd: 3.4 cm (3.9 - 5.3) LVPWd: 1.1 cm (0.6 - 1.1) IVSs: 1.2 cm LVIDs: 2.5 cm LVPWs: 1.6 cm LAESV Index (A-L): 20.17 ml/m Ao Diam: 2.6 cm (2.0 - 3.7) AV Cusp: 1.5 cm (1.5 - 2.6) LA Diam: 1.8 cm (2.7 - 3.8) EPSS: 0.9 cm MV E Jesús: 0.65 m/s MV DecT: 255 ms MV A Jesús: 0.81 m/s MV E/A Ratio: 0.80 RAP: 5.00 mmHg RVSP: 13.47 mmHg MV EF SLOPE: 70.52 mm/s (70 - 150) MV EXCURSION: 1.24 cm (> 18.000) FINDINGS -------- Sinus rhythm. This was a technically good study. The left ventricular size is normal. Left ventricular wall thickness is normal. Overall left vent ricular systolic function is normal with, an EF between 55 - 60 %. The right ventricle is normal in size. The left atrium is normal in size. The right atrial size is normal. The aortic valve is trileaflet and appears structurally normal. The mitral valve leaflets are mildly thickened. Mild mitral regurgitation is present. Mild tricuspid regurgitation present. The right ventricular systolic pressure, as measured by Doppl er, is 13.47mmHg. There is no pulmonic regurgitation present. The aortic root size is normal. The inferior vena cava was not well visualized. There is no pericardial effusion. CONCLUSIONS -------- 1. Sinus rhythm. 2. This was a technically good study. 3. The left ventricular size is normal. 4. Left ventricular wall thickness is normal. 5. Overall left ventricular systolic function is normal with, an EF between 55 - 60 %. 6. The right ventricle is normal in size. 7. The left atrium is normal in size. 8. The right atrial size is normal. 9. The aortic valve is trileaflet and appears structurally normal. 10. The mitral valve leaflets are mildly thickened. 11. Mild mitral regurgitation is present. 12. Mild tricuspid regurgitation present. 13. The right ventricular systolic pressure, as measured by Doppler, is 13.47mmHg. 14. There is no pulmonic regurgitation present. 15. The aortic root size is normal. 16. The inferior vena cava was not well visualized. 17. There is no pericardial effusion. [employer] SUPERVISOR: Emily Chavez RDCS
== END | disposition home or self-care (01) ==
LOC: RADECHMAIN 13:29
PROVIDERS: ATTEND Internal Medicine Hematology & Oncology
DX: Z01.818 Encounter for other preprocedural examination (principal); C50.412 Malignant neoplasm of upper-outer quadrant of left female breast; I08.1 Rheumatic disorders of both mitral and tricuspid valves
CPT/HCPCS: 93306

== ENCOUNTER → 2019-07-30 | Outpatient (CLI) | payer OTHER ==
--- NOTE | 2019-07-31 10:18 | ECHOF ---
Referral Reason:C50.412 Breast CA, Z01.818 Chemo MEASUREMENTS -------- HEIGHT: 162.6 cm WEIGHT: 56.7 kg BP: RVIDd: 1.7 cm (< 3.3) IVSd: 0.8 cm (0.6 - 1.1) LVIDd: 3.7 cm (3.9 - 5.3) LVPWd: 1.0 cm (0.6 - 1.1) IVSs: 1.3 cm LVIDs: 2.5 cm LVPWs: 1.7 cm LAESV Index (A-L): 21.86 ml/m Ao Diam: 2.5 cm (2.0 - 3.7) AV Cusp: 1.9 cm (1.5 - 2.6) LA Diam: 3.1 cm (2.7 - 3.8) MV EXCURSION: 17.354 mm (> 18.000) MV EF SLOPE: 139 mm/s (70 - 150) EPSS: 0.6 cm MV E Jesús: 0.72 m/s MV DecT: 194 ms MV A Jesús: 0.89 m/s MV E/A Ratio: 0.81 FINDINGS -------- Sinus rhythm. This was a technically adequate study. The left ventricular size is normal. Left ventricular wall thickness is normal. Overall left vent ricular systolic function is low-normal with, an EF between 50 - 55 %. The right ventricle is normal in size. The left atrial size is normal. Normal LA size by volume 22+/-6 ml/m2. The right atrial size is normal. The aortic valve is trileaflet and appears structurally normal. The mitral valve is normal. There is trace mitral regurgitation. The tricuspid valve appears structurally normal. Trace tricuspid regurgitation present. Right jamaal tricular systolic pressure is normal at < 35 mmHg. There is no pulmonic regurgitation present. The aortic root size is normal. Normal inferior vena cava with normal inspiratory collapse consistent with estimated right atrial pre ssure of 5 mmHg. There is no pericardial effusion. CONCLUSIONS -------- 1. Sinus rhythm. 2. This was a technically adequate study. 3. The left ventricular size is normal. 4. Left ventricular wall thickness is normal. 5. Overall left ventricular systolic function is low-normal with, an EF between 50 - 55 %. 6. The right ventricle is normal in size. 7. The left atrial size is normal. 8. Normal LA size by volume 22+/-6 ml/m2. 9. The right atrial size is normal. 10. The aortic valve is trileaflet and appears structurally normal. 11. The mitral valve is normal. 12. There is trace mitral regurgitation. 13. The tricuspid valve appears structurally normal. 14. Trace tricuspid regurgitation present. 15. Right ventricular systolic pressure is normal at < 35 mmHg. 16. There is no pulmonic regurgitation present. 17. The aortic root size is normal. 18. Normal inferior vena cava with normal inspiratory collapse consistent with estimated right atrial pressure of 5 mmHg. 19. There is no pericardial effusion. [employer]ER: Emily Chavez RDCS
== END | disposition home or self-care (01) ==
LOC: RADECHMAIN 15:34
PROVIDERS: ATTEND Internal Medicine Hematology & Oncology
DX: Z01.818 Encounter for other preprocedural examination (principal); C50.412 Malignant neoplasm of upper-outer quadrant of left female breast
CPT/HCPCS: 93306

== ENCOUNTER → 2019-08-11 | Outpatient (CLI) | payer OTHER ==
[2019-08-11 09:50] LABS: African American GFR (CKD) >90 (>60 ml/min/1.73 sqM); Blood Urea Nitrogen 15 mg/dL (7-17)
--- NOTE | 2019-08-11 10:37 | CT ---
EXAMINATION TYPE: CT abdomen w con DATE OF EXAM: 08/11/2019 COMPARISON: 12/19/2017 and 12/14/2015 HISTORY: 54-year-old female splenomegaly TECHNIQUE: Contiguous axial scanning of the abdomen following administration of 100 ml Omnipaque 300 IV contrast. Delayed images through the kidneys and coronal/sagittal reconstructions performed. CT DLP: 306.5 mGycm Automated exposure control for dose reduction was used. FINDINGS: Heart normal size without pericardial effusion. Previous subpleural nodular posterior left base currently measures 7 mm versus 9 mm, previously, like ly nodular subpleural atelectasis. No pleural effusion. Some focal fat along the anterior falciform ligament. Previously seen small hepatic cysts are no longer identified. Portal venous system is patent. No bili daamris ductal dilatation. Gallbladder, adrenal glands, left kidney, and pancreas appear within normal limits. Subcentimeter cor tical hypodensity lower pole right kidney is stable compatible with a benign cyst. Heterogeneously enhancing lesion within the upper pole of the spleen currently measures 4.6 x 4.3 cm versus 3.9 x 3.9 cm on 12/19/2017 and 1.6 cm on 12/14/2015. Small probable cyst is located just anteriorly within the spleen measuring 1.2 cm and appears new/lar baldo. In retrospect, it measured 8 mm on 12/19/2017. No dilated small bowel, free fluid, or free air. No mesenteric or retroperitoneal lymphadenopathy. No pericolonic inflammatory change. Mild diverticulosis along the lower descending colon. Lower abdomen and pelvis is not imaged. Bones: Facet arthropathy mid to lower lumbar spine. Grade 1 anterolisthesis L3-L4 secondary to severe hypertrophic facet arthropathy. IMPRESSION: PROGRESSIVE GRADUAL ENLARGEMENT OF THE PATIENT'S UPPER POLE SPLENIC LESION CURRENTLY AT 4.6 X 4.3 CM (VERSUS 3.9 X 3.9 CM ON 12/19/2017 AND 1.6 CM ON 12/14/2015). ENLARGING HEMANGIOMA OR HAMARTOMA VARIANT ARE POSSIBLE. GIVEN THE PERSISTENT GROWTH, NEOPLASM NOT EXCLUDED AT THE TIME. CONSIDER CONTINUED CLOS E FOLLOW-UP VERSUS SURGICAL EVALUATION.
== END ==
LOC: RADCTMAIN 08:36
PROVIDERS: ATTEND Family Medicine
DX: D73.89 Other diseases of spleen (principal)
CPT/HCPCS: 82565; 84520; 74160; 36415; Q9967 ×2

== ENCOUNTER → 2019-09-21 | Outpatient (CLI) | payer OTHER ==
--- NOTE | 2019-09-21 14:43 | MM ---
Reason for exam: additional evaluation requested from prior study. Last mammogram was performed 1 year and 1 month ago. History: Patient is postmenopausal and has history of breast cancer at age 54. Family history of breast cancer in paternal cousin. Benign US biopsy breast VAD LT of the left breast, August 13, 2018. Excisional biopsy of the right breast, 1989. Chemotherapy. Radiation therapy. Physical Findings: Nurse did not find any significant physical abnormalities on exam. MG 3D Diag Mammo W/Cad GARETT Bilateral CC and MLO view(s) were taken. Prior study comparison: August 22, 2018, right breast MG 3d diag mammo w/cad RT. August 13, 2018, left breast MG diagnostic mammo LT wo CAD. The breast tissue is heterogeneously dense. This may lower the sensitivity of mammography. There is a stable right retroareolar mass. No suspicious abnormality. Post therapy and radiation change on the left. These results were verbally communicated with the patient and result sheet given to the patient on 09/21/19. ASSESSMENT: Benign, BI-RAD 2 RECOMMENDATION: Follow-up diagnostic mammogram of both breasts in 1 year.
== END | disposition home or self-care (01) ==
LOC: RADMAMWWP 13:48
PROVIDERS: ATTEND Radiology Diagnostic Radiology
DX: C50.912 Malignant neoplasm of unspecified site of left female breast (principal)
CPT/HCPCS: 77066; G0279; 77062

== ENCOUNTER → 2019-12-25 | Outpatient (CLI) | payer OTHER ==
--- NOTE | 2019-12-28 09:03 | PE ---
Nuclear medicine PET/CT HISTORY: Breast carcinoma, subsequent Patient received 12.1 mCi F-18 FDG intravenously in delayed scanning was performed from the skull bas e to the mid thighs. Localization and attenuation correction CT scan was performed. Comparison prior nuclear medicine PET/CT 07/22/2018 Neck and chest: There is no evident supraclavicular or cervical adenopathy. There is a right subclavi an Port-A-Cath, port is overlying the right pectoral region. Catheter tip is at the level of the cavo atrial junction. There is no evident lung mass. The subpleural left upper lobe shows some inflammator y change extending to the pleural surface. There is abnormal skin thickening in the left breast, some abnormal soft tissue along the chest wall with only mild hypermetabolic uptake. No axillary, mediast inal, or hilar adenopathy. No pleural or pericardial effusion. There is a small hiatal hernia. ABDOMEN: There is no evident liver mass. No retroperitoneal adenopathy. No suspicious hypermetabolic uptake. There is no ascites. Aorta shows normal caliber. Osseous structures are within normal limits. IMPRESSION: Findings may be due to posttreatment change but are indeterminate within the left breast. Previous identified yonatan uptake or site of prior yonatan surgical excision in the left axilla is no l onger seen.
== END | disposition home or self-care (01) ==
LOC: RADPETMAIN 14:24
PROVIDERS: ATTEND Internal Medicine Hematology & Oncology
DX: C50.412 Malignant neoplasm of upper-outer quadrant of left female breast (principal)
CPT/HCPCS: 78815; A9552

== ENCOUNTER → 2020-07-12 | Outpatient (CLI) | payer OTHER ==
--- NOTE | 2020-07-12 12:18 | CT ---
EXAMINATION TYPE: CT chest w con DATE OF EXAM: 07/12/2020 COMPARISON: Chest CT April 06, 2018 and older CTs. PET/CT December 25, 2019. HISTORY: follow up breast cancer left thigh diagnosed 2017. CT DLP: 228.5 mGycm. Automated Exposure Control for Dose Reduction was Utilized. TECHNIQUE: CT scan of the thorax is performed following with IV Contrast, patient injected with 100 mL of Isovue 300. FINDINGS: LUNGS: There is no peripheral reticulation anterolaterally left upper to midlung thought to reflect p osttreatment change related to left-sided breast cancer. There is no pleural effusion or pneumothorax seen bilaterally. No concerning new pulmonary nodules or masses are identified. The tracheobronchial tree is patent. MEDIASTINUM: There are no greater than 1 cm hilar or mediastinal lymph nodes. No cardiomegaly or pe ricardial effusion is seen. OTHER: There is partial visualization of asymmetric left breast skin thickening consistent with postt reatment change for left breast neoplasm. No suspicious axillary adenopathy on current study. There i s right subclavian Mediport catheter terminating in SVC redemonstrated. Stable 4.6 cm large ametaboli c rounded low dense lesion in the spleen axial image 55 and smaller low dense 1 cm lesion anterior in ferior aspect axial image 60. IMPRESSION: Partial visualization of treatment changes to left breast. No new suspicious pulmonary no dules or masses to suggest new thoracic metastatic disease.
== END | disposition home or self-care (01) ==
LOC: RADCTMAIN 11:00
PROVIDERS: ATTEND Internal Medicine Hematology & Oncology
DX: C50.412 Malignant neoplasm of upper-outer quadrant of left female breast (principal)
CPT/HCPCS: 71260; Q9967

== ENCOUNTER → 2020-07-12 | Outpatient (CLI) | payer OTHER ==
--- NOTE | 2020-07-12 11:08 | MM ---
Reason for exam: follow-up at short interval from prior study. Last mammogram was performed 10 months ago. History: Patient is postmenopausal and has history of breast cancer at age 54. Family history of breast cancer in paternal cousin. Benign US biopsy breast VAD LT of the left breast, August 13, 2018. Excisional biopsy of the right breast, 1989. Chemotherapy. Radiation therapy. Physical Findings: Nurse did not find any significant physical abnormalities on exam. MG 3D Diag Mammo W/Cad LT CC and MLO view(s) were taken of the left breast. Prior study comparison: September 21, 2019, bilateral MG 3d diag mammo w/cad GARETT. August 22, 2018, right breast MG 3d diag mammo w/cad RT. The breast tissue is heterogeneously dense. This may lower the sensitivity of mammography. Previous mammotome biopsy in the left breast. Skin thickening is stable. These results were verbally communicated with the patient and result sheet given to the patient on 07/12/20. ASSESSMENT: Benign, BI-RAD 2 RECOMMENDATION: Follow-up diagnostic mammogram of both breasts in 3 months. Back on schedule for September 2020.
== END | disposition home or self-care (01) ==
LOC: RADMAMWWP 10:09
PROVIDERS: ATTEND Student in an Organized Health Care Education/Training Program
DX: R92.8 Other abnormal and inconclusive findings on diagnostic imaging of breast (principal); Z85.3 Personal history of malignant neoplasm of breast
CPT/HCPCS: 77065; G0279; 77061

== ENCOUNTER → 2020-10-31 | Outpatient (CLI) | payer OTHER | END | disposition home or self-care (01) | LOC: LABPAT 14:41 | PROVIDERS: ATTEND Student in an Organized Health Care Education/Training Program | DX: Z01.812 Encounter for preprocedural laboratory examination (principal); Z20.828 Contact with and (suspected) exposure to other viral communicable diseases | CPT/HCPCS: U0003; C9803 ==

== ENCOUNTER 2020-11-04 07:37 | Day surgery (SDC) | payer OTHER ==
[2020-11-03 09:47] VITALS: BMI 24.0
[~2020-11-04 07:37] MED LIST changes: +DEXAMETHASONE SOD PHOSPHATE 4 MG/ML 1 ML VIAL IV ONE; +HEPARIN SODIUM,PORCINE 5,000 UNIT/ML 1 ML VIAL SQ PRN; +HYDROmorphone 0.5 MG/0.5 ML SYRINGE IVP PRN; +LACTATED RINGERS 1,000 ML IV SCH; -LIDOCAINE 1% 20 ML VIAL (10MG/ML) FOR IV START INTRADERMA PRN; +MIDAZOLAM 2 MG/2 ML VIAL IV PRN; +ONDANSETRON 4 MG/2 ML VIAL IVP ONE; +SCOPOLAMINE 1.5MG/72HR PATCH TRANSDERM ONE
[2020-11-04 07:55] VITALS: TEMP 98
[2020-11-04] MEDS ORDERED: MIDAZOLAM 2 MG/2 ML VIAL IVP ONE (08:38)
[2020-11-04] MEDS ORDERED: LIDOCAINE 1% INJ 10MG/ML (20 ML MDV) SQ ONE (08:53)
[2020-11-04] MEDS ORDERED: fentaNYL (PF) 50 MCG/ML 2 ML AMP ONE (09:01)
[2020-11-04] MEDS ORDERED: PROPOFOL 10 MG/ML 20 ML VIAL IV ONE (09:01)
[2020-11-04] MEDS ORDERED: MIDAZOLAM 2 MG/2 ML VIAL ONE (09:01)
[2020-11-04] MEDS ORDERED: LIDOCAINE (PF) 10 MG/ML 5ML AMP SQ ONE (09:22)
[2020-11-04 09:51] VITALS: RESP 17
[2020-11-04 10:01] VITALS: BP 114/70; PULSE 66
--- NOTE | 2020-11-04 11:04 | P.OP ---
Date of Procedure: 11/04/20 Preoperative Diagnosis: Breast cancer Postoperative Diagnosis: Same Anesthesia: MAC Surgeon: John Lynch Condition: stable Disposition: same day Description of Procedure: Patient is brought operative suite remained in supine position underwent sedation per department of anesthesia timeout was performed correct patient correct procedure correct site was verified. local anesthetic was used to anesthetize the skin and subcutaneous tissues around the right anterior chest rectum over the scar within the Mediport was. Directly over the previous scar a for similar incision was made carried down to the Mediport the capsule was incised in the Mediport was delivered through the incision the Prolene stitches were cut and removed from the medical port was removed easily completely intact with the catheter completely intact. Pressure was held and hemostasis was noted the wound was closed with 3-0 subdermal Vicryl sutures followed by 4-0 running subcuticular stitch sterile dressing was applied patient tolerated the procedure well no apparent complications Plan - Discharge Summary Discharge Rx Participant: No New Discharge Prescriptions: No Action Albuterol Inhaler (Mhu) [Ventolin Hfa Inhaler] 1 - 2 puff INHALATION Q4HR PRN PRN Reason: Shortness Of Breath Albuterol Nebulized [Ventolin Nebulized] 2.5 mg INHALATION Q6H PRN PRN Reason: Shortness Of Breath Omeprazole [PriLOSEC] 20 mg PO AC-BID PRN PRN Reason: reflux diazePAM [Valium] 5 mg PO BID PRN PRN Reason: Anxiety HYDROcodone/APAP 10-325MG [[place] 10-325] 0.5 tab PO Q6HR PRN PRN Reason: Pain Azithromycin [Zithromax Tri-Quique (3 tabs)] 500 mg PO DAILY Ibuprofen [Motrin Ib] 200 - 400 mg PO Q8H PRN PRN Reason: Pain Discharge Medication List Albuterol Inhaler (Mhu) [Ventolin Hfa Inhaler] 1 - 2 puff INHALATION Q4HR PRN 03/04/17 [History] Albuterol Nebulized [Ventolin Nebulized] 2.5 mg INHALATION Q6H PRN 10/02/18 [History] Omeprazole [PriLOSEC] 20 mg PO AC-BID PRN 03/05/19 [History] diazePAM [Valium] 5 mg PO BID PRN 03/05/19 [History] Azithromycin [Zithromax Tri-Quique (3 tabs)] 500 mg PO DAILY 11/03/20 [History] HYDROcodone/APAP 10-325MG [[place] 10-325] 0.5 tab PO Q6HR PRN 11/03/20 [History] Ibuprofen [Motrin Ib] 200 - 400 mg PO Q8H PRN 11/03/20 [History] Follow up Appointment(s)/Referral(s): John Lynch DO [Doctor of Osteopathic Medicine] - As Needed Patient Instructions/Handouts: *Surgery [facility] - (Anesthesia) Discharge Instructions Outpatient Surgery Activity/Diet/Wound Care/Special Instructions: ENCOURAGE FLUIDS AT HOME, REST TODAY ok to shower tomorrow. ok to remove dressing tomorrow leave steristrips intact they will fall off within 2weeks Discharge Disposition: HOME SELF-CARE
== END 2020-11-04 10:38 | disposition home or self-care (01) ==
LOC: OR 07:37
PROVIDERS: ATTEND Student in an Organized Health Care Education/Training Program
DX: Z45.2 Encounter for adjustment and management of vascular access device (principal); C50.911 Malignant neoplasm of unspecified site of right female breast; C77.9 Secondary and unspecified malignant neoplasm of lymph node, unspecified; J44.9 Chronic obstructive pulmonary disease, unspecified; F17.200 Nicotine dependence, unspecified, uncomplicated; M19.90 Unspecified osteoarthritis, unspecified site; F41.9 Anxiety disorder, unspecified; K21.9 Gastro-esophageal reflux disease without esophagitis; K64.9 Unspecified hemorrhoids; E78.00 Pure hypercholesterolemia, unspecified; G47.33 Obstructive sleep apnea (adult) (pediatric); F32.9 Major depressive disorder, single episode, unspecified; Z91.09 Other allergy status, other than to drugs and biological substances; Z92.21 Personal history of antineoplastic chemotherapy; Z79.891 Long term (current) use of opiate analgesic; Z79.899 Other long term (current) drug therapy; Z79.1 Long term (current) use of non-steroidal anti-inflammatories (NSAID); Z98.890 Other specified postprocedural states; Z87.898 Personal history of other specified conditions; Z80.0 Family history of malignant neoplasm of digestive organs; Z92.3 Personal history of irradiation
CPT/HCPCS: 36590; J2250; J1644; J1100; J0690; J2405; J2001; J3010; J2704

== ENCOUNTER → 2021-03-13 | Outpatient (CLI) | payer OTHER | END | disposition home or self-care (01) | LOC: LABWHC1 09:11 | PROVIDERS: ATTEND Family Medicine | DX: Z03.818 Encounter for observation for suspected exposure to other biological agents ruled out (principal) ==

== ENCOUNTER → 2021-03-15 | Outpatient (CLI) | payer OTHER ==
--- NOTE | 2021-03-15 10:18 | MM ---
Reason for exam: additional evaluation requested from prior study. Last mammogram was performed 8 months ago. History: Patient is postmenopausal and has history of breast cancer at age 54. Family history of breast cancer in paternal cousin. Benign US biopsy breast VAD LT of the left breast, August 13, 2018. Excisional biopsy of the right breast, 1989. Chemotherapy. Radiation therapy. Physical Findings: Nurse Summary: 1.5cm nodule in the right breast at 4 o'clock (nurse db). MG 3D Diag Mammo W/Cad GARETT Bilateral CC and MLO view(s) were taken. Prior study comparison: July 12, 2020, left breast MG 3d diag mammo w/cad LT. September 21, 2019, bilateral MG 3d diag mammo w/cad GARETT. The breast tissue is heterogeneously dense. This may lower the sensitivity of mammography. There is no discrete abnormality including area of concern. Stable post operative changes left breast. These results were verbally communicated with the patient and result sheet given to the patient on 03/15/21. ASSESSMENT: Incomplete: need additional imaging evaluation, BI-RAD 0 RECOMMENDATION: Ultrasound of the right breast. Manage patient on a clinical basis.
--- NOTE | 2021-03-15 10:20 | USB ---
Reason for exam: additional evaluation requested from abnormal screening. History: Patient is postmenopausal and has history of breast cancer at age 54. Family history of breast cancer in paternal cousin. Benign US biopsy breast VAD LT of the left breast, August 13, 2018. Excisional biopsy of the right breast, 1989. Chemotherapy. Radiation therapy. US Breast Limited RT Right limited breast ultrasound including focal area of concern, retroareolar and axilla demonstrates no cystic or solid lesion seen. These results were verbally communicated with the patient and result sheet given to the patient on 03/15/21. ASSESSMENT: Negative, BI-RAD 1 RECOMMENDATION: Routine screening mammogram of both breasts in 1 year. Manage patient on a clinical basis.
== END | disposition home or self-care (01) ==
LOC: RADMAMWWP 07:52
PROVIDERS: ATTEND Radiology Radiation Oncology
DX: N63.10 Unspecified lump in the right breast, unspecified quadrant (principal); R92.8 Other abnormal and inconclusive findings on diagnostic imaging of breast; Z85.3 Personal history of malignant neoplasm of breast
CPT/HCPCS: 77066; 76642; G0279; 77062

== ENCOUNTER → 2021-07-23 | Outpatient (CLI) | payer OTHER ==
--- NOTE | 2021-07-23 11:25 | MR ---
EXAMINATION TYPE: MR brain wo/w con DATE OF EXAM: 07/23/2021 COMPARISON: None HISTORY: Headaches. Bilateral hand numbness. History of breast cancer. TECHNIQUE: Multiplanar, multisequence images of the brain and brainstem is performed without and with IV contras t, utilizing 6.5 mL intravenous Gadavist . FINDINGS: Diffusion weighted images demonstrate no evidence of a recent infarct or other diffusion ab normality. There is no extra-axial fluid collection or significant white matter signal abnormality. The ventricular system and cisternal spaces are normal in size and appearance. The brain volume is age appropriate. A few Foci of T2/FLAIR signal abnormality in the subcortical white matter likely on the basis of chronic ischemic microangiopathic change. Midline structures demonstrate normal morphology. The craniocervical junction appears within normal limits. Post contrast images demonstrate no abnormal enhancement. The dural venous sinuses appear pa tent. Mucosal thickening of the bilateral maxillary sinuses otherwise the visualized sinuses are radha r and the globes are intact. IMPRESSION: No pathological intracranial enhancement or acute intracranial process.
== END | disposition home or self-care (01) ==
LOC: RADMRIMAIN 09:19
PROVIDERS: ATTEND Psychiatry & Neurology Neurology
DX: R51.9 Headache, unspecified (principal); R20.0 Anesthesia of skin; Z85.3 Personal history of malignant neoplasm of breast
CPT/HCPCS: 70553; A9585

== ENCOUNTER → 2021-09-01 | Outpatient (CLI) | payer OTHER ==
--- NOTE | 2021-09-01 08:10 | MR ---
MRI CERVICAL SPINE: CLINICAL HISTORY: Cervical radicular pain. Neck pain into upper back down both arms. TECHNIQUE: Multiplanar, multisequence imaging of the cervical spine is performed without and with IV contrast, 6.5 cc of gadolinium was given intravenously. COMPARISON: None. FINDINGS: Sagittal images of the cervical spine show the craniocervical junction to appear within nor mal limits. The cervical and upper thoracic spinal cord is normal in caliber and signal. Slight grad e 1 retrolisthesis C5 on C6 and C6 on C7 along with C3 on C4. The vertebral body heights are normal. Moderate disc space narrowing C5-C6 and C6-C7 levels. The bone marrow signal intensity is within no rmal limits. No suspicious postcontrast enhancement. Mild multilevel anterior spurring. Axial images show C2-C3 level to appear within normal limits. Axial images at the C3-C4 level shows uncovertebral facet degenerative changes bilaterally causing mi ld bilateral neural foraminal narrowing. Axial images at C4-C5 level shows some uncovertebral facet degenerative changes bilaterally causing m ild bilateral neural foraminal narrowing. Axial images at C5-C6 level show spondylolisthesis with broad-based right paracentral disc protrusion . There is effacement of the anterior thecal sac. There is moderate right-sided neural foraminal narr owing. Axial images at C6-C7 level shows subtle spondylolisthesis with left paracentral disc protrusion, the re is effacement of the anterior thecal sac and mild left greater than right bilateral neural foramin al narrowing. Axial images at C7-T1 level appear within normal limits. There is asymmetric atrophy or diminished size to left thyroid lobe. Correlate clinically. IMPRESSION: Multilevel spondylolisthesis and degenerative changes in the cervical spine as detailed a venkatesh. No suspicious enhancement.
== END | disposition home or self-care (01) ==
LOC: RADMRIMAIN 07:16
PROVIDERS: ATTEND Psychiatry & Neurology Neurology
DX: M50.123 Cervical disc disorder at C6-C7 level with radiculopathy (principal); M43.12 Spondylolisthesis, cervical region; M47.22 Other spondylosis with radiculopathy, cervical region
CPT/HCPCS: 72156; A9585

== ENCOUNTER 2021-09-28 09:13 | Emergency (ER) | payer OTHER ==
[2021-09-28 09:34] VITALS: TEMP 97.1
[2021-09-28] MEDS ORDERED: SODIUM CHLORIDE 0.9% 1,000 ML IV STA (09:57)
[2021-09-28] MEDS ORDERED: ONDANSETRON 4 MG/2 ML VIAL IVP STA (09:58)
[2021-09-28] MEDS ORDERED: HYDROmorphone 1 MG/ML 1 ML SYRINGE IVP STA (09:58)
--- NOTE | 2021-09-28 10:07 | ED ---
Chest Pain HPI - General Chief Complaint: Chest Pain Stated Complaint: Chest pain, abd pain, back pain Time Seen by Provider: 09/28/21 09:37 Source: patient, RN notes reviewed Mode of arrival: wheelchair Limitations: no limitations - History of Present Illness Initial Comments: This a 56-year-old female presents emergency from chief complaint of upper a bdominal, lower chest pain. Patient states this was a sudden onset 1 hour ago. She states she's having pain wraps around. Patient states she does have underlying is cancer, history of COPD. Patient states she's never had any pain like this Before. She was scheduled for CT and which she states she was told to have one a few days ago for chest and L4 her abdomen but states the pain worsened prior arrival. She states is worse pain she's experienced. She has admit to some nausea, uncontrolled pain. Patient denies any dysuria hematuria - Related Data Home Medications Medication Instructions Recorded Confirmed Albuterol Nebulized [Ventolin 2.5 mg INHALATION Q6H PRN 10/02/18 09/28/21 Nebulized] Omeprazole [PriLOSEC] 20 mg PO DAILY 03/05/19 09/28/21 HYDROcodone/APAP 10-325MG [[place] 0.5 tab PO BID PRN 11/03/20 09/28/21 10-325] Albuterol Sulfate [Albuterol 2 puff PO RT-Q6H PRN 09/28/21 09/28/21 Sulfate Hfa] Atorvastatin Calcium [Lipitor] 40 mg PO DIRECTED 09/28/21 09/28/21 Budesonide/Formoterol Fumarate 2 puff INHALATION DIRECTED 09/28/21 09/28/21 [Symbicort 160-4.5 Mcg Inhaler] Diazepam [Valium] 5 mg PO BID PRN 09/28/21 09/28/21 Ergocalciferol (Vitamin D2) 1,250 mcg PO WEEKLY 09/28/21 09/28/21 [Drisdol (50,000 Iu)] Montelukast Sodium [Singulair] 10 mg PO DIRECTED 09/28/21 09/28/21 Prochlorperazine [Compazine] 10 mg PO DAILY PRN 09/28/21 09/28/21 predniSONE See Taper PO DIRECTED 09/28/21 09/28/21 Allergies Allergy/AdvReac Type Severity Reaction Status Date / Time adhesive tape Allergy "SKIN Verified 09/28/21 11:11 PEELS", blisters Review of Systems ROS Statement: Those systems with pertinent positive or pertinent negative responses have been documented in the HPI. ROS Other: All systems not noted in ROS Statement are negative. 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 History of Any Multi-Drug Resistant Organisms: None Reported Past Surgical History: Breast Surgery, Section, Tonsillectomy Additional Past Surgical History / Comment(s): thyroid surgery, lump removed from right breast, left breast lumpectomy and sentinel node, port placement Past Anesthesia/Blood Transfusion Reactions: No Reported Reaction Past Psychological History: Anxiety Past Alcohol Use History: Occasional - Past Family History Daughter(s) Family Medical History: Cancer Additional Family Medical History / Comment(s): uterine Father Family Medical History: Cancer General Exam Limitations: no limitations General appearance: in distress Head exam: Present: atraumatic, normocephalic, normal inspection Eye exam: Present: normal appearance, PERRL, EOMI. Absent: scleral icterus, conjunctival injection, periorbital swelling ENT exam: Present: normal exam, mucous membranes moist Neck exam: Present: normal inspection, full ROM. Absent: tenderness, meningismus, lymphadenopathy Respiratory exam: Present: normal lung sounds bilaterally. Absent: respiratory distress, wheezes, rales, rhonchi, stridor Cardiovascular Exam: Present: regular rate, normal rhythm, normal heart sounds. Absent: systolic murmur, diastolic murmur, rubs, gallop, clicks GI/Abdominal exam: Present: soft, tenderness, normal bowel sounds. Absent: distended, guarding, rebound, rigid Neurological exam: Present: alert, oriented X3, CN II-XII intact Skin exam: Present: warm, dry, intact, normal color. Absent: rash Course Vital Signs 09/28/21 09:32 Temperature 97.1 F L Pulse Rate 87 Respiratory 20 Rate Blood Pressure 158/69 O2 Sat by Pulse 98 Oximetry Chest Pain [facility] - [facility] 56-year-old female presented for upper abdominal pain chest pain back pain issues, patient was immediately seen labs CT were ordered. There is no evidence of dissection or acute abnormality on CT. I am still concerned about patient symptoms giving her upper abdominal pain and chest pain are recommended the patient stay in the hospital for evaluation patient states that she has not seen a hospital she refuses to states she understands risk of leaving patient will leave Medical advice. Disposition Clinical Impression: Chest pain, Abdominal pain Disposition: Left Against Medical Advice Referrals: Jaime Ramos MD [Primary Care Provider] - 1-2 days
--- NOTE | 2021-09-28 10:11 | XR ---
EXAMINATION TYPE: XR chest 1V portable DATE OF EXAM: 09/28/2021 COMPARISON: NONE HISTORY: Chest pain TECHNIQUE: Single frontal view of the chest is obtained. FINDINGS: There is no focal air space opacity, pleural effusion, or pneumothorax seen. The cardiac silhouette size is within normal limits. The osseous structures are intact. Heart size normal. No o vert failure. Vague nodule left upper lobe measuring 8 mm. Diffuse osteopenia. IMPRESSION: 1. 8 mm left upper lobe nodule. Correlate for mild COPD.
[2021-09-28 10:27] LABS: Basophils % (A) 0 %; Eosinophils # (A) 0.3 k/uL (0-0.7); Eosinophils % (A) 2 %; HCT 43.1 % (34.0-46.0); HGB 14.1 gm/dL (11.4-16.0); Lymphocytes % (A) 27 %; MCHC 32.8 g/dL (31.0-37.0); MCV 88.5 fL (80.0-100.0); Mean Platelet Volume 7.5; Monocytes # (A) 0.9 k/uL (0-1.0); Monocytes % (A) 6 %; Neutrophils # (A) 9.5 k/uL (1.3-7.7); Neutrophils % (A) 64 %; Platelet Count 456 k/uL (150-450); RBC 4.87 m/uL (3.80-5.40); RDW 14.5 % (11.5-15.5); WBC 14.8 k/uL (3.8-10.6)
[2021-09-28 10:32] LABS: INR 0.9 (<1.2); Partial Thromboplastin Time 22.8 sec (22.0-30.0); Prothrombin Time 9.4 sec (9.0-12.0)
[2021-09-28 10:46] LABS: ALT 41 U/L (4-34); AST 52 U/L (14-36); African American GFR (CKD) >90 (>60 ml/min/1.73 sqM); Albumin 4.2 g/dL (3.5-5.0); Alkaline Phosphatase 88 U/L (38-126); Anion Gap 9 mmol/L; Blood Urea Nitrogen 18 mg/dL (7-17); Calcium 10.1 mg/dL (8.4-10.2); Carbon Dioxide 23 mmol/L (22-30); Chloride 106 mmol/L (98-107); Glucose 94 mg/dL (74-99); Lipase 68 U/L (23-300); Magnesium 2.1 mg/dL (1.6-2.3); Non-African American GFR(CKD) >90 (>60 ml/min/1.73 sqM); Potassium 4.4 mmol/L (3.5-5.1); Sodium 138 mmol/L (137-145); Total Bilirubin 0.5 mg/dL (0.2-1.3); Total Protein 7.1 g/dL (6.3-8.2)
--- NOTE | 2021-09-28 11:06 | CT ---
EXAMINATION TYPE: CT angio thor/abd pel aorta DATE OF EXAM: 09/28/2021 COMPARISON: CT abdomen and pelvis August 11, 2019. Most recent PET/CT December 25, 2019 most r ecent chest CT July 12, 2020 HISTORY: Chest, Abdominal and Pelvic pain since 0845 this am. History of breast cancer completed mira tment 1.[address] DLP: 1372.4 mGycm. Automated Exposure Control for Dose Reduction was Utilized. CONTRAST: CTA scan of the thorax, abdomen and pelvis is performed without oral and without and with IV Contrast , patient injected with 100 ml mL of Isovue 370. Three-D reconstructed images created on an [employer] workstation and reviewed. FINDINGS: VASCULAR: Noncontrast images show no suspicious hyperdense material to suggest intramural hematoma. S atisfactory enhancement of the central pulmonary arteries. Satisfactory enhancement of the aorta with out aneurysm or dissection. Normal three-vessel origin from aortic arch. Patent celiac artery and SMA along with bilateral single renal arteries and NICOLE without significant stenosis. Mild to moderate pe ripheral plaque along the abdominal aorta redemonstrated. The iliac vessels without significant steno sis. Patent femoral vessels bilateral groin without significant plaque or stenosis. No linear hypoden sity to suggest dissection. No aneurysm. LUNGS: Mild emphysematous changes present. Mild peripheral fibrotic changes in the left lung are rede monstrated. No new nodules or masses. No new consolidation. No pleural effusion or pneumothorax seen MEDIASTINUM: There are no new greater than 1 cm hilar or mediastinal lymph nodes. Tiny pericardial ef fusion is now seen. No cardiomegaly.1 OTHER: Spiculation suspected scarring or treated neoplasm in the posterior aspect of left breast uppe r outer quadrant near chest wall axial image 46 redemonstrated felt Stable. LIVER/GB: Gallbladder is mildly dilated with distended margins without surrounding inflammatory avery e. PANCREAS: No significant abnormality is seen. SPLEEN: There is nonspecific 5.1 cm low dense lesion in the spleen axial image 88 redemonstrated not significant changed from prior studies. There is smaller a 1.2 cm benign thin-walled cyst anterior in ferior to this redemonstrated. ADRENALS: No significant abnormality is seen. KIDNEYS: No significant abnormality is seen. BOWEL: Suboptimal evaluation of bowel without enteric contrast. No suspicious small large bowel dilat ation. Some diverticula throughout the colon are present. GENITAL ORGANS: Anteverted uterus is prominent lobulated contour suggesting underlying fibroids. Few scattered bilateral pelvic phleboliths. LYMPH NODES: No greater than 1cm abdominal or pelvic lymph nodes are appreciated. OSSEOUS STRUCTURES: Slight grade 1 anterolisthesis L3 on L4. OTHER: No significant additional abnormality is seen. IMPRESSION: No aortic aneurysm or dissection. No acute findings are evident.
[2021-09-28 12:13] VITALS: BP 97/68; PULSE 68; RESP 18
== END 2021-09-28 12:13 | disposition left against medical advice (07) ==
LOC: EC 09:13
DX: R07.89 Other chest pain (principal); R10.10 Upper abdominal pain, unspecified; J44.9 Chronic obstructive pulmonary disease, unspecified; K21.9 Gastro-esophageal reflux disease without esophagitis; F41.9 Anxiety disorder, unspecified; Z79.51 Long term (current) use of inhaled steroids; Z79.52 Long term (current) use of systemic steroids; Z79.899 Other long term (current) drug therapy; Z85.3 Personal history of malignant neoplasm of breast
CPT/HCPCS: 36415; 93005; 80053; 83690; 83735; 84484; 85025; 85610; 85730; 71045; 71275; 74174; 99285; 96374; 96375; 96361; J2405; J1170; Q9967

== ENCOUNTER → 2021-10-19 | Outpatient (CLI) | payer OTHER ==
--- NOTE | 2021-10-19 11:53 | US ---
EXAMINATION TYPE: US abdomen complete DATE OF EXAM: 10/19/2021 COMPARISON: CT 09/28/2021 CLINICAL HISTORY: R19.7 DIARRHEA, R10.11 RT UPPER QUADRANT PAIN. EXAM MEASUREMENTS: Liver Length: 15.0 cm Gallbladder Wall: 0.15 cm CBD: 0.71 cm Spleen: 6.8 cm Right Kidney: 10.7 x 4.3 x 5.0 cm Left Kidney: 10.7 x 4.3 x 5.2 cm Pancreas: wnl as seen Liver: wnl Gallbladder: wnl; anechoic Evidence for sonographic Bob's sign: No CBD: wnl Spleen: Difficult to visualize, appears heterogenous. Unable to differentiate a lesion from splenic tissue that was last seen on CT 09/28/21. Anechoic focus seen 1.1 x 1.1 x 1.2 cm. Right Kidney: wnl Left Kidney: wnl Upper IVC: wnl Abd Aorta: wnl The liver is homogenous. The intrahepatic portion of the IVC and proximal abdominal aorta are within normal limits. There is no evidence of cholelithiasis. Common bile duct is unremarkable. The visu alized portions of the pancreas are homogenous. Kidneys are symmetric and free of hydronephrosis. N o renal lesions are seen. IMPRESSION: Anechoic S splenic lesion. Splenic heterogeneity.
== END | disposition home or self-care (01) ==
LOC: RADUSWWP 10:08
PROVIDERS: ATTEND Internal Medicine Hematology & Oncology
DX: D73.89 Other diseases of spleen (principal)
CPT/HCPCS: 76700

== ENCOUNTER → 2021-11-13 | Outpatient (CLI) | payer OTHER ==
--- NOTE | 2021-11-13 09:29 | NM ---
EXAMINATION TYPE: NM hepatobiliary w EF DATE OF EXAM: 11/13/2021 COMPARISON: NONE HISTORY: Pain TECHNIQUE: After the intravenous administration of 4.1 mCi Tc 99m Mebrofenin hepatobiliary scintigrap hy is performed. Immediate images post injection. FINDINGS: There is satisfactory initial accumulation of tracer by the liver. The gallbladder is visualized wit hin 12 minutes. The small bowel activity is noted within 48 minutes. At one hour 8 ounces of oral e nsure plus is given to mimic CCK and gallbladder ejection fraction is calculated at 65 %, in the norm al range. Therefore there is no scintigraphic evidence of cystic or common bile duct obstruction to suggest acute cholecystitis or gallbladder dyskinesia. IMPRESSION: Exam is within normal limits.
== END | disposition home or self-care (01) ==
LOC: RADNMMAIN 07:09
PROVIDERS: ATTEND Family Medicine
DX: R10.11 Right upper quadrant pain (principal)
CPT/HCPCS: 78226; A9537

== ENCOUNTER → 2021-12-04 | Outpatient (CLI) | payer OTHER ==
[~2021-12-04] MED LIST changes: +BAMLANIVIMAB (EUA) 700 MG, ETESEVIMAB (EUA) 1,400 MG in SODIUM CHLORIDE 0.9% 100 ML IVPB NR; -DEXAMETHASONE SOD PHOSPHATE 4 MG/ML 1 ML VIAL IV ONE; -HEPARIN SODIUM,PORCINE 5,000 UNIT/ML 1 ML VIAL SQ PRN; -HYDROmorphone 0.5 MG/0.5 ML SYRINGE IVP PRN; -LACTATED RINGERS 1,000 ML IV SCH; -MIDAZOLAM 2 MG/2 ML VIAL IV PRN; -ONDANSETRON 4 MG/2 ML VIAL IVP ONE; -SCOPOLAMINE 1.5MG/72HR PATCH TRANSDERM ONE; +SODIUM CHLORIDE 0.9% 50 ML IVPB NR; +SODIUM CHLORIDE 0.9% 500 ML 500 ML in EMPTY BAG 1 BAG IV PRN
[2021-12-04 13:32] VITALS: TEMP 97
[2021-12-04 13:40] VITALS: RESP 18
[2021-12-04 14:03] VITALS: BP 128/77; PULSE 76
== END ==
LOC: PROCWHC3 12:53
PROVIDERS: ATTEND Family Medicine
DX: U07.1 COVID-19 (principal); F17.200 Nicotine dependence, unspecified, uncomplicated; Z91.048 Other nonmedicinal substance allergy status
CPT/HCPCS: 96360

== ENCOUNTER → 2022-02-19 | Outpatient (CLI) | payer OTHER ==
--- NOTE | 2022-02-20 08:31 | MM ---
Reason for exam: additional evaluation requested from prior study. Last mammogram was performed 11 months ago. History: Patient is postmenopausal and has history of breast cancer at age 54. Family history of breast cancer in paternal cousin. Benign US biopsy breast VAD LT of the left breast, August 13, 2018. Excisional biopsy of the right breast, 1989. Chemotherapy. Radiation therapy. Physical Findings: A clinical breast exam by your physician is recommended on an annual basis and results should be correlated with mammographic findings. MG 3D Diag Mammo W/Cad G[facility]T Bilateral CC and MLO view(s) were taken. Prior study comparison: March 15, 2021, bilateral MG 3d diag mammo w/cad GARETT. July 12, 2020, left breast MG 3d diag mammo w/cad LT. The breast tissue is heterogeneously dense. This may lower the sensitivity of mammography. Previous mammotome biopsy in the left breast. There is chronic nodularity in the right breast. Post therapy changes left breast. No significant changes when compared with prior studies. ASSESSMENT: Benign, BI-RAD 2 RECOMMENDATION: Follow-up diagnostic mammogram of both breasts in 1 year.
== END | disposition home or self-care (01) ==
LOC: RADMAMWWP 14:50
PROVIDERS: ATTEND Radiology Radiation Oncology
DX: R92.8 Other abnormal and inconclusive findings on diagnostic imaging of breast (principal); Z85.3 Personal history of malignant neoplasm of breast; Z78.0 Asymptomatic menopausal state; Z80.3 Family history of malignant neoplasm of breast
CPT/HCPCS: 77066; G0279; 77062

== ENCOUNTER → 2022-12-11 | Outpatient (CLI) | payer OTHER ==
[2022-12-11 11:20] LABS: African American GFR (CKD) >90 (>60 ml/min/1.73 sqM); Blood Urea Nitrogen 19 mg/dL (7-17); Non-African American GFR(CKD) >90 (>60 ml/min/1.73 sqM)
--- NOTE | 2022-12-11 14:32 | CT ---
EXAMINATION TYPE: CT ChestAbdPelvis w con DATE OF EXAM: 12/11/2022 COMPARISON: 09/28/2021 HISTORY: Hx breast ca, c/o stomach pain and swelling. CT DLP: 1248 mGycm CONTRAST: CT scan of the chest, abdomen and pelvis is performed with Oral Contrast and with IV Contrast, patien t injected with 70 mL of Isovue 300. CT Chest: LUNGS: The lungs are clear and free of infiltrate or atelectasis. No pulmonary nodule or mass is det ected. No pleural effusion or CT evidence of interstitial lung disease. MEDIASTINUM: Thoracic aorta is of normal caliber. The heart is not enlarged. No evidence for media stinal mass or adenopathy. HILAR STRUCTURES: No evidence for mass. No hilar adenopathy is appreciated. OTHER: No significant abnormality. CONTRAST CT ABDOMEN AND PELVIS FINDINGS: LIVER/GB: No calcified gallstones. No space occupying hepatic lesion. Biliary tree is of normal ca liber. PANCREAS: No inflammation. No distinct mass. SPLEEN: Hypoattenuating splenic mass is again noted and measures 4.8 cm in greatest dimension versus 5.1 cm previously. ADRENALS: No nodule. No thickening. KIDNEYS/BLADDER: No hydronephrosis. No nephrolithiasis. No distinct renal mass. BOWEL: Normal appendix. Normal bowel caliber. No inflammation. Scattered sigmoid diverticulosis wit hout diverticulitis. GENITAL ORGANS: Heterogeneity uterine fundus may reflect underlying leiomyomatous change. No evidence for adnexal mass. LYMPH NODES: No greater than 1cm abdominal or pelvic lymph nodes are appreciated. AORTA: No significant abnormality. OSSEOUS STRUCTURES: No significant abnormality is seen. OTHER: No significant additional abnormality is seen. IMPRESSION: 1. Stable examination without CT evidence to suggest metastatic disease to the chest abdomen or pelvi s. 2. Stable nonspecific splenic lesion.
--- NOTE | 2022-12-11 16:09 | NM ---
EXAMINATION TYPE: NM bone scan whole body DATE OF EXAM: 12/11/2022 COMPARISON: Same day available body CT HISTORY: Breast cancer. Delayed whole-body scanning was performed following the injection of 22.2 mCi Tc 99m MDP. Images acq uired 3.25 hours post injection. Whole body images anterior and posterior projection along with addit ional spot images of the head and neck thorax and abdomen and pelvis are acquired. FINDINGS: Diffuse increased uptake in the calvarium is felt to reflect product of hyperostosis. No mercedes spicious focal increased radiotracer uptake to suggest osseous metastatic disease to the bone or othe r significant abnormality. Normal excretion is seen. IMPRESSION: As above.
== END | disposition home or self-care (01) ==
LOC: RADNMMAIN 10:03
PROVIDERS: ATTEND Internal Medicine Hematology & Oncology
DX: C50.412 Malignant neoplasm of upper-outer quadrant of left female breast (principal); Z03.89 Encounter for observation for other suspected diseases and conditions ruled out; D73.89 Other diseases of spleen
CPT/HCPCS: 82565; 84520; 71260; 74177; 36415; 78306; A9503; Q9967

== ENCOUNTER → 2023-02-20 | Outpatient (CLI) | payer OTHER ==
--- NOTE | 2023-02-20 13:02 | MM ---
Reason for Exam: Follow-up at short interval from prior study. Last screening mammogram was performed 12 month(s) ago. Patient History: Menarche at age 9. First Full-Term at age 15. Postmenopausal. Patient has history of breast feeding. Breast cancer, age 54. 1989, Excisional Biopsy on the Right side. 08/13/2018, Benign Core Biopsy on the left side. Chemotherapy. Radiation Therapy. Paternal cousin had breast cancer. Tissue Density: There are scattered fibroglandular densities. Findings: Analyzed By CAD. Diminished size of the left breast with thickening consistent with posttreatment changes redemonstrated. A biopsy clip in the left breast is again seen. No suspicious mass or distortion in either breast. Asymmetric prominent tissue towards the left axilla remains present. Overall Assessment: Benign, BI-RAD 2 Management: Diagnostic Mammogram of both breasts in 1 year. A clinical breast exam by your physician is recommended on an annual basis and results should be correlated with mammographic findings. This exam should not preclude additional follow-up of suspicious palpable abnormalities. Results were given to the patient verbally at the time of exam. Electronically signed and approved by: Jeffrey Duckworth M.D.
== END | disposition home or self-care (01) ==
LOC: RADMAMWWP 12:32
PROVIDERS: ATTEND Radiology Radiation Oncology
DX: R92.8 Other abnormal and inconclusive findings on diagnostic imaging of breast (principal); Z85.3 Personal history of malignant neoplasm of breast; Z78.0 Asymptomatic menopausal state; Z80.3 Family history of malignant neoplasm of breast
CPT/HCPCS: 77066; G0279; 77062

== ENCOUNTER → 2024-01-15 | Outpatient (CLI) | payer OTHER ==
--- NOTE | 2024-01-17 08:29 | NM ---
EXAMINATION TYPE: NM bone scan whole body DATE OF EXAM: 01/16/2024 12:50 PM CLINICAL INDICATION:Female, 58 years old with history of C50.412 BR CA; COMPARISON: 12/11/2022 TECHNIQUE: Intravenous administration 18.1 mCi Tc 99m MDP followed by multiple scintigraphic images o f the appendicular and axial skeleton. Images acquired 3 hours post injection. FINDINGS: No abnormal uptake is identified within the appendicular or axial skeleton to suggest metastatic dise ase. There is increased uptake within the bilateral shoulder, sternoclavicular, and sacroiliac joints con sistent with degenerative changes. No other photopenic areas or areas of increased activity are ident ified. Physiologic radiotracer activity is demonstrated in the kidneys and bladder. IMPRESSION: Nothing to suggest metastatic disease.
== END | disposition home or self-care (01) ==
LOC: RADNMMAIN 09:57
PROVIDERS: ATTEND Internal Medicine Hematology & Oncology
DX: C50.412 Malignant neoplasm of upper-outer quadrant of left female breast (principal)
CPT/HCPCS: 78306; A9503

== ENCOUNTER → 2024-01-15 | Outpatient (CLI) | payer OTHER ==
--- NOTE | 2024-01-15 12:27 | CT ---
EXAMINATION TYPE: CT ChestAbdPelvis w con DATE OF EXAM: 01/15/2024 COMPARISON: 12/11/2022 HISTORY: 58-year-old female C50.412, breast cancer follow up TECHNIQUE: Contiguous axial scanning of the chest, abdomen, and pelvis performed with IV Contrast, pa tient injected with 100 mL of Isovue 300. Delayed images through the kidneys were obtained. Coronal/s agittal reconstructions performed. CT DLP: 1179 mGycm Automated exposure control for dose reduction was used. FINDINGS: Chest: Redemonstrated are postsurgical and posttreatment changes left breast. Heart normal size with trace anterior pericardial fluid, unchanged from prior. Aorta normal caliber with conventional arch vessel branching anatomy. The left thyroid lobe is either small or surgically absent. No thoracic lymphadenopathy by CT size criteria. Some nodular subpleural scarring or atelectasis at the lung bases. Mild emphysematous changes present . Mild biapical pleural parenchymal scarring. No consolidation or pleural effusion. Subpleural reticu lations anterior left lung compatible with post radiation therapy change. ABDOMEN: Small amount of focal fat along the anterior falciform ligament is unchanged. Portal venous system is patent. Otherwise, no focal liver lesion. No biliary ductal dilatation. Gallbladder, adrenal glands, kidneys, and pancreas within normal limits. There is a redemonstrated heterogeneously hypodense mass of the superior spleen, unchanged at 4.8 cm. Possible hamartoma or hemangioma given stability. An adjacent anterior splenic cyst measuring 1.1 cm is also unchanged. No dilated small bowel, free fluid, or free air. No mesenteric or retroperitoneal lymphadenopathy. Oral contrast has progressed to the splenic flexure of the colon. There is mild overall stool particu larly in the left side of the colon. Generalized colonic diverticulosis. No pericolonic inflammatory change. Pelvis: Bladder is urine distended. Pelvic fluid ligaments. Uterus anteverted. There is a 3.3 cm right cab driver ior uterine fundal fibroid, unchanged from prior. Ovaries not well seen, probably a small postmenopau landon. No abnormal fluid collection in the pelvis or pelvic lymphadenopathy. Bones: Facet arthropathy mid to lower lumbar spine. Prominent grade 1 anterolisthesis L3-L4 is redemonstrate d. No osseous destructive process. IMPRESSION: 1. REDEMONSTRATED POSTSURGICAL AND POSTTREATMENT CHANGE LEFT BREAST. NO EVIDENCE FOR RECURRENT OR MET ASTATIC DISEASE. 2. INCIDENTAL: COPD WITH MILD EMPHYSEMA. UNCHANGED 4.8 CM MASS OF THE SPLEEN PROBABLY A SPLENIC HEMAN GIOMA OR HAMARTOMA GIVEN STABILITY. GENERALIZED COLONIC DIVERTICULOSIS WITHOUT ACUTE DIVERTICULITIS. A STABLE 3.3 CM RIGHT POSTERIOR UTERINE FUNDAL FIBROID.
== END | disposition home or self-care (01) ==
LOC: RADCTMAIN 09:54
PROVIDERS: ATTEND Internal Medicine Hematology & Oncology
DX: C50.412 Malignant neoplasm of upper-outer quadrant of left female breast (principal); J43.9 Emphysema, unspecified; K57.30 Diverticulosis of large intestine without perforation or abscess without bleeding; D25.9 Leiomyoma of uterus, unspecified; R19.7 Diarrhea, unspecified; Z17.1 Estrogen receptor negative status [ER-]; R12 Heartburn
CPT/HCPCS: 71260; 74177; Q9967

== ENCOUNTER → 2024-02-24 | Outpatient (CLI) | payer OTHER ==
--- NOTE | 2024-02-24 10:20 | MM ---
Reason for Exam: Additional evaluation requested from prior study. Last screening mammogram was performed 12 month(s) ago. Patient History: Menarche at age 9. First Full-Term at age 15. Postmenopausal. Patient has history of breast feeding. Breast cancer, left, age 54. Previous chest radiation therapy at age 54. Previous chemotherapy at age 54. 1989, Excisional Biopsy on the Right side. 08/13/2018, Benign Core Biopsy on the left side. Chemotherapy. Radiation Therapy. Paternal cousin had breast cancer. Prior Study Comparison: 09/28/1994 Screening Mammogram, [facility]. 12/04/2017 Bilateral Screening Mammogram, [facility]. 12/12/2017 Bilateral Diagnostic Mammogram, [facility] 04/25/2018 Left Diagnostic Mammogram, [facility]. 08/13/2018 Left Diagnostic Mammogram, [facility]. 08/22/2018 Right Diagnostic Mammogram, [facility]. 09/21/2019 Bilateral Diagnostic Mammogram, [facility]. 07/12/2020 Left Diagnostic Mammogram, [facility]. 03/15/2021 Bilateral Diagnostic Mammogram, [facility]. 02/19/2022 Bilateral Diagnostic Mammogram, [facility]. 02/20/2023 Bilateral MG 3D diag mammo w/cad GARETT, [facility]. Tissue Density: There are scattered areas of fibroglandular density. Findings: Analyzed By CAD. Postlumpectomy and radiation therapy changes left breast. There is no evidence for recurrent or residual mass. No evidence for suspicious cluster of microcalcifications within either breast. Overall Assessment: Benign, BI-RAD 2 Management: Diagnostic Mammogram of both breasts in 1 year. . Results were given to the patient verbally at the time of exam. Patient should continue monthly self-breast exams. A clinical breast exam by your physician is recommended on an annual basis. This exam should not preclude additional follow-up of suspicious palpable abnormalities. Note on Aneta scores and lifetime risk: 1. A Aneta score greater than 3% is considered moderate risk. If this is the case, consider specialist referral to assess eligibility for a risk reducing agent. 2. If overall lifetime risk for the development of breast cancer is 20% or higher, the patient may qualify for future screening with alternating mammogram and breast MRI. Electronically signed and approved by: Eric Ron M.D. Radiologis
== END | disposition home or self-care (01) ==
LOC: RADMAMWWP 09:41
PROVIDERS: ATTEND Radiology Radiation Oncology
DX: R92.323 Mammographic fibroglandular density, bilateral breasts (principal); Z85.3 Personal history of malignant neoplasm of breast; Z80.3 Family history of malignant neoplasm of breast; Z78.0 Asymptomatic menopausal state
CPT/HCPCS: 77066; G0279; 77062

== ENCOUNTER → 2025-03-08 | Outpatient (CLI) | payer OTHER ==
--- NOTE | 2025-03-08 11:13 | MM ---
Reason for Exam: Hx of breast cancer, conservation therapy. Last screening mammogram was performed 12 month(s) ago. Patient History: Menarche at age 9. First Full-Term at age 15. Postmenopausal. Patient has history of breast feeding. Breast cancer, left, age 54. Previous chest radiation therapy at age 54. Previous chemotherapy at age 54. 1989, Excisional Biopsy on the Right side. 08/13/2018, Benign Core Biopsy on the left side. 2018, Chemotherapy. 2018, Radiation Therapy on the left side. Chemotherapy. Radiation Therapy. Paternal cousin had breast cancer. Tissue Density: The breasts are heterogeneously dense, which may obscure small masses. Findings: Analyzed By CAD. No evidence for mass or suspicious cluster of microcalcifications. Postoperative distortion upper outer quadrant left breast from prior lumpectomy. Overall Assessment: Benign, BI-RAD 2 Management: Diagnostic Mammogram of both breasts in 1 year. . Results were given to the patient verbally at the time of exam. Patient should continue monthly self-breast exams. A clinical breast exam by your physician is recommended on an annual basis. This exam should not preclude additional follow-up of suspicious palpable abnormalities. Note on Aneta scores and lifetime risk: 1. A Aneta score greater than 3% is considered moderate risk. If this is the case, consider specialist referral to assess eligibility for a risk reducing agent. 2. If overall lifetime risk for the development of breast cancer is 20% or higher, the patient may qualify for future screening with alternating mammogram and breast MRI. [facility], , 03/08/2025 11:11 AM. Electronically signed and approved by: Eric Ron M.D. Radiologis
== END | disposition home or self-care (01) ==
LOC: RADMAMWWP 10:45
PROVIDERS: ATTEND Radiology Radiation Oncology
DX: R92.8 Other abnormal and inconclusive findings on diagnostic imaging of breast (principal); R92.333 Mammographic heterogeneous density, bilateral breasts; Z85.3 Personal history of malignant neoplasm of breast; Z78.0 Asymptomatic menopausal state; Z80.3 Family history of malignant neoplasm of breast
CPT/HCPCS: 77066; G0279; 77062